=== PATIENT | male | born 1950 | race Caucasian/White ===

== ENCOUNTER 2022-10-07 11:36 | Outpatient (REF) | payer MEDICARE, SELFPAY ==
[2022-10-07 14:24] LABS: Appearance Urine Clear; Color Urine Yellow; Glucose Urine UA 100 mg/dL (Negative); Leukocyte Esterase Urine Negative (Negative); Nitrite Urine Negative (Negative); Specific Gravity - Urine 1.025 (1.005-1.025); Urine Blood Negative (Negative); Urine Ketones Trace mg/dL (Negative); Urine Protein Trace mg/dL (Neg-Trace)
[2022-10-07 14:29] LABS: Bacteria Urine None Seen (None Seen); Hyaline Casts Urine 0-2 /LPF (0-2); RBC Urine 0-2 /HPF (0-2); Squamous Epithelial Cell Urine 0-2 /HPF (0-2); WBC Urine 0-5 /HPF (0-5)
== END 2022-10-07 11:37 | disposition home or self-care (01) ==
LOC: HO.MANLDS 11:36
PROVIDERS: Visit Provider Internal Medicine
DX: R30.0 Dysuria (principal)
CPT/HCPCS: 81001; 87086

== ENCOUNTER 2025-09-20 09:56 | Outpatient (REF) | payer MEDICARE, SELFPAY ==
--- OUTSIDE RECORDS SUMMARY | 2025-09-20 11:25 | XMS_ITS | Encounter Summary ---
Author Organization [facility] Address [address] [place] [address] Phone Care Team Providers Care Catheter Builder Name Role Phone Unknown, Unknown Primary Care Provider Kranthi Walton DO Primary Care Provider Encounter Details Date Type Department Care Team (Latest Contact Info) Description 09/02/2022 Transcribe Orders [facility] [address] [place] [address] Ivy Limon PA [address] [facility] [place] [address] Type 2 diabetes mellitus without complication, without long-term current use of insulin; Screening for prostate cancer Social History Tobacco Use Types Packs/Day Years Used Date Smoking Tobacco: Former Cigarettes Q uit: 1989 Smokeless Tobacco: Former Alcohol Use Standard Drinks/Week Comments No 0 (1 standard drink = 0.6 oz pur e alcohol) Sex and Gender Information Value Date Recorded Sex Assigned at Not on file Legal Sex Male 10:00 PM EDT Gender Identity Not on file Sexual Orientation Not on file documented as of this encounter Plan of Treatment Upcoming Encounters Date Type Department Care Team (Late st Contact Info) Description 10/27/2024 Procedure Pass [facility] [address] [place] [id number] 10/24/2025 9:15 AM EST Appointment [facility] [address] [place] [address] Florina Ledbetter, DANIAL [address], [address] [place] [address] [email or web address] 11/13/2025 8:30 AM EST Office Visit [facility] [address] [facility] [address], [address] [place] [address] Florina Ledbetter, DNP [address] [facility], [address] [place] [address] documented as of this encounter Results * PSA (screening) (09/02/2022 8:20 AM EDT) PSA 0.46 0 - 4.00 ng/mL [facility] Blood 09/02/2022 8:20 AM EDT 09/02/2022 8:24 AM EDT us Ivy [facility] BLOOD BKR ORDERABLES Fi nal Result [address] [address] * (ABNORMAL) Microalbumin/creatinine ratio, random urine (09/02/2022 8:20 AM EDT) URINE MICROALBUMIN 3.3(H) 0 - 2.3 mg/dL [facility] URINE CREATININE 131 mg/dL [facility] MICROALB/CRE RATIO 25.2(H) 0 - 20 mg/g Cre [facility] Urine (Urine) 09/02/2022 8:2 0 AM EDT 09/02/2022 8:30 AM EDT us Ivy [facility] URINE ORDERABLES Final Result [address] [address] * CBC and differential (09/02/2022 8:20 AM EDT) WBC 6.36 4.00 - 11.00 K/uL [facility] RBC 4.81 3.90 - 5.69 M/uL [facility] HGB 13.9 12.4 - 17.3 g/dL [facility] HCT 43.3 37.0 - 51.0 % [facility] PLT 185 140 - 430 K/uL [facility] MCV 90.0 78.0 - 97.0 fL [facility] MCH 28.9 25.0 - 33.0 pg [facility] MCHC 32.1 32.0 - 36.0 g/dL [facility] RDW 12.8 11.0 - 15.0 % [facility] MPV 11.1 8.4 - 12.8 fl [facility] DIFF [employer] [facility] NEUTS 64.3 43.0 - 75.0 % [facility] LYMPHS 21.1 18.2 - 47.4 % [facility] MONOS 8.3 4.00 - 11.00 % [facility] EOS 4.6 0.0 - 8.0 % [facility] BASOS 1.4 0.0 - 2.0 % [facility] Granulocytes, immature (%) 0.3 0.0 - 0.9 % [facility] ABSOLUTE NEUTS 4.09 1.80 - 7.70 K/uL [facility] ABSOLUTE LYMPHS 1.34 1.00 - 3.10 K/uL [facility] ABSOLUTE MONOS 0.53 0.20 - 0.80 K/uL [facility] ABSOLUTE EOS 0.29 0.00 - 0.80 K/uL [facility] ABSOLUTE BASOS 0.09 0.00 - 0.09 K/uL [facility] Granulocytes, immature 0.02 0.00 - 0.05 K/uL [facility] Blood 09/02/2022 8:20 AM EDT 09/02/2022 8:24 AM EDT us Ivy [facility] BLOOD BKR ORDERABLES Fi nal Result [facility] [address] [place] [address] * (ABNORMAL) Hemoglobin A1c (09/02/2022 8:20 AM EDT) HEMOGLOBIN A1C 7.0(H) 4.3 - 5.8 % [facility] Blood 09/02/2022 8:20 AM EDT 09/02/2022 8:24 AM EDT us Ivy [facility] BLOOD BKR ORDERABLES Fi nal Result [facility] [address] [place] [address] * (ABNORMAL) Comprehensive metabolic panel (09/02/2022 8:20 AM EDT) SODIUM 143 133 - 146 mmol/L [facility] POTASSIUM 4.8 3.3 - 5.1 mmol/L [facility] CHLORIDE 107 96 - 108 mmol/L [facility] CO2 26 21 - 35 mmol/L [facility] BUN 11 6 - 19 mg/dL [facility] CREATININE 0.80 0.5 - 1.5 mg/dL [facility] GLUCOSE 120(H) 70 - 99 mg/dL [facility] ALBUMIN 4.4 3.9 - 4.8 g/dL [facility] TOTAL PROTEIN 6.8 6.5 - 8.0 g/dL [facility] CALCIUM 9.3 8.4 - 10.3 mg/dL [facility] ALKALINE PHOSPHATASE 103 39 - 117 U/L [facility] TOTAL BILIRUBIN 0.6 0.0 - 1.2 mg/dL [facility] AST 17 0 - 37 U/L [facility] ALT 17 0 - 40 U/L [facility] GLOBULIN 2.4 1 - 4.8 g/dL [facility] EGFR 95 >59 mL/min/1.7 3m2 [facility] Comment:Estimated glomerular filtration rate calculated using the CKD-EPI refit equation. ANION GAP 15 10 - 20 mmol/L [facility] Blood 09/02/2022 8:20 AM EDT 09/02/2022 8:24 AM EDT us Ivy [facility] BLOOD BKR ORDERABLES Fi nal Result [facility] [address] [place] [address] documented in this encounter Visit Diagnoses Diagnosis Type 2 diabetes mellitus without complication, without long-term current use of insulin Screening for prostate cancer Special screening for malignant neoplasm of prostate documented in this encounter Care Teams Catheter Builder Relationship Specialty Start Date End Date Unknown, Unknown, MD PCP - General 02/19/22 06/15/23 Kranthi Javier DO [email or web address] PCP - General Internal Medicine 06/16/23 documented as of this encounter Additional Source Comments The information contained in this document represents components of the legal health record. It is not the complete legal health record.[facility]
--- OUTSIDE RECORDS SUMMARY | 2025-09-20 11:26 | XMS_ITS | Encounter Summary ---
Author Organization [facility] Address [address] [place] [address] Phone Care Team Providers Care Dock Grader Name Role Phone ShaqtristianKranthi DO Primary Care Provider [phone] Encounter Details Date Type Department Care Team (Late st Contact Info) Description 05/08/2024 Procedure Pass [facility], Ct Scan - [facility] [address] [place] [address] Social History Tobacco Use Types Packs/Day Years Used Date Smoking Tobacco: Former Cigarettes 1.5 25 1 965 - 1989 Smokeless Tobacco: Former Alcohol Use Standard Drinks/Week Comments Yes 1 (1 standard drink = 0.6 oz pur e alcohol) Education Answer Date Recorded Are you interested in more education? Not on kin e 03/13/2023 Are you concerned about learning? Not on file 03/13/2023 No 03/13/2023 No 03/13/2023 Digital Access Answer Date Recorded No 04/13/2023 No 04/13/2023 Reliable internet access at home? Not on file 04/13/2023 Device with a working camera? Not on file Intimate Partner Violence Answer Date R ecorded Are you denied basic needs s uch as food, clothing, or medical care? No 05/08/2024 In the past 12 months have y ou been in a relationship with a person who hurts, threatens, or tries to control you? No 05/08/2024 Are you denied basic needs s uch as food, clothing, or medical care? No 05/08/2024 In the past 12 months have y ou been in a relationship with a person who hurts, threatens, or tries to control you? No 05/08/2024 Sex and Gender Information Value Date Recorded Sex Assigned at Not on file Legal Sex Male 10:00 PM EDT Gender Identity Not on file Sexual Orientation Not on file documented as of this encounter Functional Status * Calculated C-SSRS Risk Score (Lifetime/Recent) Answer Date of Assessment Author No Risk Indicated 05/08/2024 11:32 AM EDT Page Murphy RN * [place] Suicide Severity Rating Scale (Screener/Recent Self-Report) Question Answer Date of Assessment Author 1. Wish to be (Past 1 Month) No 05/08/2024 11:32 AM EDT Page Murphy RN 2. Non-Specific Active Suicidal Thoughts (Past 1 Month) No 05/08/2024 11:32 AM EDT Page Murphy RN 6. Suicidal Behavior (Lifetime) No 05/08/2024 11:32 AM EDT Page Murphy RN documented as of this encounter Plan of Treatment Upcoming Encounters Date Type Department Care Team (Late st Contact Info) Description 10/27/2024 Procedure Pass [facility] [address] [place] [address] 10/24/2025 9:15 AM EST Appointment [facility] [address] [place] [address] Florina Ledbetter DNP [address] [place] [id number] 11/13/2025 8:30 AM EST Office Visit [facility] [address] [place] [address] [address]rd Floor, [address] [address] Florina Ledbetter DNP [address] [place] [phone] documented as of this encounter Visit Diagnoses Not on filedocumented in this encounter Care Teams Dock Grader Relationship Specialty Start Date End Date Kranthi Javier DO [phone] (work) [email or web address] PCP - General Internal Medicine 06/16/23 documented as of this encounter Additional Source Comments The information contained in this document represents components of the legal health record. It is not the complete legal health record.[facility]
--- OUTSIDE RECORDS SUMMARY | 2025-09-20 11:26 | XMS_ITS | Encounter Summary ---
Author Organization [facility] Address [address] [place] [address] Phone Care Team Providers Care Environmental Engineering Intern Name Role Phone ShaqtristianKranthi DO Primary Care Provider [phone] Encounter Details Date Type Department Care Team (Late st Contact Info) Description 06/20/2024 Procedure Pass [facility] [place] [address] [place] [address] Social History Tobacco Use Types Packs/Day Years Used Date Smoking Tobacco: Former Cigarettes 1.5 25 1 965 - 1989 Smokeless Tobacco: Former Alcohol Use Standard Drinks/Week Comments Yes 1 (1 standard drink = 0.6 oz pur e alcohol) Home Health Assessment: Transportation Answer Date Recorded Lack of Transportation (Medical) No 06/22/2024 Lack of Transportation (Non-Medical) No 06/22/2024 Patient Unable or Declines to Respond No 06/22/2024 Education Answer Date Recorded Are you interested [...] Info) Description 10/27/2024 Procedure Pass [facility] [address] [place] [address] 10/24/2025 9:15 AM EST Appointment [facility] [address] [place] [address] Florina Ledbetter DNP [address] [place] [address], [address] [address] 11/13/2025 8:30 AM EST Office Visit [facility] [address], [address] [place] [phone] Florina Ledbetter DNP [address] [place] [address], [address] [address] documented as of this encounter Visit Diagnoses Not on filedocumented in this encounter Care Teams Environmental Engineering Intern Relationship Specialty Start Date End Date Kranthi Javier DO PCP - General Internal Medicine 06/16/23 documented as of this encounter Additional Source Comments The information contained in this document represents components of the legal health record. It is not the complete legal health record.[facility]
--- OUTSIDE RECORDS SUMMARY | 2025-09-20 11:26 | XMS_ITS | Continuity of Care Document ---
Author Organization [place] - [facility], [facility] Address [address] [place] [address] [place] [address] Assessment Encounter Date Assessment Date Assessment LastModified by Organization Details LastModified Time 09/20/2025 09/20/2025 Patient presente d to office today for their Medicare Annual Wellness Visit. Education was provided on healthy nutrition, including a diet rich in fruits and vegetables, minimizing simple carbohydrates, salt, and saturated fats. Encouraged regular cardiovascular exercise such as walking at least 30 minutes daily, 5 times per week. Emphasized preventive health measures and educated pt on fall prevention and community-based lifestyle interventions to help reduce health risks and promote healthy living. Not available 08/07/2025 12:09:44 Plan of Treatment Reminders Order Date Submit Date Provider Last Modified By Organization Details Last Modified Time Details Appointments MEDICARE ANNUAL WELLNESS 2024 10:30A M DR HENSON Not available Not available Not available MEDICARE ANNUAL WELLNESS 2025 09:00A M DR HENSON Not available Not available Not available Lab lipid panel, blood 2024 025 [facility], [address] [place] [address], [id number], 09/20/2025 11:02:35 hemoglobi n, gastroint estinal, stool 2024 025 [facility], [address] [place] [address], [place], [id number], 09/20/2025 11:02:35 CBC w/ auto diff 2024 025 [facility], [address] [place] [address], [id number], 09/20/2025 11:02:35 CMP, serum or plasma 2024 025 [facility], [address] [place] [address], [id number], 09/20/2025 11:02:34 Referral None recorded. Procedures None recorded. Surgeries None recorded. Imaging None recorded. Medication Orders None recorded. Patient TargetsNo targets recorded. Patient Instructions Encounter Date Encounter Id Patient Instructions Last Modified By Organization Details Last Modified Time 09/20/2025 [id number] advance care planning: care instructions Not available 09/20/2025 10:57:14 Discussed and explained advance directives such as standard forms to the . Face to face discussion lasted for a duration of ___ minutes. Not available 08/07/2025 12:09:44 Reason for Referral None Reported. Problems Name Problem SNOMED Code Status Onset Date Resolution Date Notes Provider Name and Address Organization Details Recorded Time Jori isidro hyperten aren 19357316 Active 2021 Not Available [facility] 2 19:44:44 Coronary arterios clerosis 26206343 Active 2021 3 prior stents 2018. 2006 Kranthi Henson, DO [address] [place], [address], [facility] 3 15:57:13 Degenera tion of lumbar interver tebral disc 78547516 Active 2021 Not Available [facility] 2 19:44:44 Osteoart hritis of knee 302297999 Active 2021 Not Available [facility] 2 19:44:44 Psoriasi s 7215474 Active 2021 Not Available [facility] 2 19:44:44 Benign prostati c hyperpla angel 690086114 Active 2021 Not Available [facility] 2 19:44:44 Seborrhe ic dermatit is 87523077 Active 2021 Not Available [facility] 2 19:44:44 Compress ion fracture of L2 75384552140 671620 Active 2021 Not Available [facility] 2 19:44:44 Abdomina l aortic aneurysm 149330958 Active 2021 s/p [facility] from may [facility] 15:23:15 Hyperlip idemia 67096014 Active 2021 Not Available [facility] 2 19:44:44 Type 2 diabetes mellitus 35926598 Active 2021 Not Available [facility] 2 19:44:44 Low back pain 799676965 Active 2021 Not Available [facility] 2 19:44:44 Acute urinary tract infectio n 435995870 Active 2021 Not Available [facility] 2 19:44:44 Acute low back pain 480353286 Active 2021 Not Available [facility] 2 19:44:44 Obstruct jez sleep apnea syndrome 25425129 Active 2022 Kranthi Henson, DO [address] [place] [address], [phone], [facility] 3 15:23:18 Type 2 diabetes mellitus without complica tion 057167430 Active 2023 Kranthi Henson, DO [address] [place] [address], [address], [facility] 4 14:47:43 Vitamin D deficien 56407256 Active 2023 Kranthi Henson, DO [address] [place] [address], [phone], [facility] 4 14:49:15 Gastroes ophageal reflux disease 697471636 Active 2023 GUALBERTO POPE [address] [place] [address], [address], [facility] 4 16:27:17 Hypercho lesterol emia 12535686 Active 2024 GUALBERTO POPE [address] [place], [address], [facility] 5 12:14:27 Problem Notes None recorded. Medical Equipment None Reported. Allergies Allergen ID Allergen Name Allergen Category Reaction Reaction Severity Criticality Documentation Date Start Date Code Code System Note Provider Name and Address Organization Details Recorded Time 6082 amoxicill in medicatio n anaphylax is severe Not available 08/29/2022 723 RxNorm Not Available [facility] 2 19:44:43 Medications Name Sig Start Date Stop Date Status Note LastModified by Organization Details LastModified Time metformin 500 mg tablet TAKE 1 TABLET DAILY active Not Available Not Available No t Available atorvastati n 80 mg tablet TAKE 1 TABLET DAILY active Not Available Not Available No t Available ofloxacin 0.3 % eye drops 05/10 completed Not Available Not Available Not Available clopidogrel 75 mg tablet TAKE 1 TABLET DAILY 2024 active Not Available Not Available Not Avai lable aspirin 81 mg tablet,zachary yed release Take 1 tablet every day by oral route. active Not Available Not Available No t Available tramadol 50 mg tablet Take 1 tablet every 6 hours by oral route. 04/17 completed Not Available Not Available Not Available glimepiride 1 mg tablet TAKE 2 TABLETS DAILY active Not Available Not Available No t Available pantoprazol e 20 mg tablet,zachary yed release TAKE 1 TABLET BY MOUTH TWICE DAILY 05/27 completed Not Available Not Available Not Available ketorolac 0.5 % eye drops PLACE 1 DROP IN SURGICAL EYE 3 TIMES A DAY FOR 3 WEEKS FOLLOWING CATARACT SURGERY IN EACH EYE 09/20 completed Not Available Not Available Not Available pantoprazol e 40 mg tablet,zachary yed release TAKE 1 TABLET BY MOUTH EVERY DAY active Not Available Not Available No t Available Cipro 500 mg tablet Take 1 tablet every 12 hours by oral route for 7 days. 08/12 completed Not Available Not Available Not Available triamcinolo ne acetonide 0.1 % topical ointment APPLY TO AFFECTED AREAS TWICE A DAY FOR UP TO 2 WEEKS ON, 1 WEEKS OFF. NO FACE, ARMPITS, OR GROIN. 09/20 completed Not Available Not Available Not Available lisinopril 5 mg tablet TAKE 1 TABLET DAILY active Not Available Not Available No t Available mupirocin 2 % topical ointment APPLY TO AFFECTED AREA THREE TIMES A DAY FOR 2 WEEKS 04/20 completed Not Available Not Available Not Available metoprolol succinate ER 25 mg tablet,exte nded release 24 hr TAKE 1 TABLET DAILY active Not Available Not Available No t Available ondansetron 4 mg disintegrat ing tablet TAKE 1 TABLET BY MOUTH EVERY 6 HOURS NEEDED FOR NAUSEA AND VOMITING 05/10 completed Not Available Not Available Not Available CoQ10 50 mg 1 qd active Not Available Not Available No t Available Farxiga 10 mg tablet TAKE 1 TABLET BY MOUTH EVERY DAY active Not Available Not Available No t Available Vitals Date Recorded Body height Body mass index (BMI) Body weight Heart rate Oxygen saturation Oxygen saturation in Arterial blood by Pulse oximetry Systolic And Diastolic Provider Name and Address Organization Details Last Updated DateTime 5 182.88 cm 29.6 kg/m2 85577.1 4 g 70 /min 97 % 97 % 112/64 mm[Hg] Kranthi Henson, DO [address] [place], [address] [place] [address] Internal Medicine 5 10:18:40 Social History Question Answer Notes LastModified by [employer] Details LastModified Time Tobacco Smoking Status Former Smoker [facility] 08/29/2022 09:53:33 What Was The Date Of Your Most Recent Tobacco Screening? 09/20/2025 Information not available 09/20/2025 Sex: Unknown Functional Status Question Answer Note LastModified by [employer] Details LastModified Time Do you or have you ever used any other forms of tobacco or nicotine? No Information not available 08/29/2022 What is your level of alcohol consumption? Occasional social Information not available 08/29/2022 Mental Status None recorded. Family History Nothing Reported. Medical History No medical history recorded. Immunizations Vaccine Type Date Status Note Provider Nam e and Address Organization Details Recorded Time COVID-19, mRNA, LNP-S, PF, 30 mcg/0.3 mL dose 01/12/2021 completed Not Available [facility] 3 11:52:21 COVID-19, mRNA, LNP-S, PF, 30 mcg/0.3 mL dose 02/02/2021 completed Not Available [facility] 3 11:52:21 Past Encounters Encounter ID Performer Location Encounter Start Date Encounter Closed Date Diagnosis/Indication Diagnosis SNOMED-CT Code Diagnosis ICD10 Code Diagnosis IMO Codes Diagnosis Note [id number] Kranthi Henson DO [facility] [address] [facility],[place] [address] 09/20/2025 10:05:48 09/20/2025 11:00:27 Screening for cardiovascular system disease 335868505 Z13.6 if he is not getting a new cath for his heart when he sees cardio he will be scheduledc t heart and echo Screening for malignant neoplasm of colon 098076506 Z12.11 Depression screening 171 218777 Z13.31 negative Essential hypertension 17411762 I10 doing okis going to try to lose weight with portion control Hyperlipidemia 62025410 E78.2 on meds Type 2 jovanny betes mellitus without complication 604546678 E11.9 a1c is 6.3 doing well and no changes Preventive procedure 169 915158 Z00.00 06500955 staying active not having any symptoms Health Concerns Section Related Observation LastModified by Organization Detai ls LastModified Time None Recorded Concern Status LastModified by Organization Details LastModified Time None Recorded Payers Encounter Date Sequence Insurance Name Policy Number Policy Allred Covered Member ID Allred Member ID Guarantor Name 09/20/2025 1 [facility] MED[place] BLUE (MEDICARE REPLACEMENT PPO) [id number] Gurwinder Tabor [id number] Gurwinder Tabor Notes Date Note Type Note Provider Name and Address Organization Details Recorded Time 09/20/20 25 text/htm l Care Management - HypertensionReported by PatientHPIFor self care, patient reportsnot under emotional stress. For severity, patient reportssymptoms are improvinganddoes not interfere with daily activities. For associated symptoms, patient reportsno dizziness,no lightheadedness,no chest pain,no shortness of breath,no palpitations,no edema,no calf muscle cramps,no blurred vision,no confusion,no headaches, andno fatigue. Care Management - DiabetesReported by PatientHPIFor self care, patient reportsseeing eye doctor yearly for dilated eye exam,checking feet regularly,normal range of home blood sugars (in the low 100s), andno side effects from medications. For associated symptoms, patient reportssymptoms are usually well controlled,no fatigue,no dizziness,no excessive sweating,no headaches,no confusion,no increased thirst,no increased appetite,no increased urination,no blurred vision,no numbness of feet, andno calluses on feet. Care Management - HyperlipidemiaReported by PatientHPIFor control, patient reportsusually well controlled,improving, andat goal. For complications, patient reportsno coronary artery disease,no heart attack,no cardiovascular disease,no pancreatitis, andno stroke. Medicare Annual Wellness VisitReported by PatientSocial/Behavioral HistoryFor diet and nutrition, patient reportshealthy diet. For fracture risk, patient reportsno history of fractures,no recent explained fracture,no sudden unexplained fractures, andno previous musculoskeletal injuries. For physical activity, patient reportsexercises on a regular basis,recent increase in physical activity, andgood physical condition.Mental Status:For depression risk, patient reportsnever feels sad, empty, or tearful,no loss of interest in activities,no significant changes in weight,no sleep disturbances or insomnia,no agitation,no loss of energy,no feelings of worthlessness or guilt,no thoughts of suicide,no history of depression, andno history of mood disorders. For orientation, patient reportsno disorientation to time,no disorientation to date, andno disorientation to place. For concentration and memory, patient reportsno decreased concentrating ability,no memory lapses or loss, anddoes not forget words. For speech/motor difficulties, patient reportsno speech difficulties,no difficulty expressing formulated concepts,no difficulty with fine manipulative tasks,no difficulty writing/copying,no slowed reaction time, anddoes not knock things over when trying to pick them up.Functional AbilityFor hearing, patient reportsno loss of hearing. For vision, patient reportsno vision problems. For activities of daily living, patient reportsable to bathe with limited or no assistance,able to contol urination and bowels,able to dress with limited or no assistance,able to feed self with limited or no assistance,able to get out of chair or bed with limited or no assistance,able to groom with limited or no assistance, andable to toilet with limited or no assistance. For instrumental activities of daily living, patient reportsable to do house work with limited or no assistance,able to grocery shop with limited or no assistance,able to manage medications with limited or no assistance,able to manage money with limited or no assistance,able to prepare meals with limited or no assistance, andable to use the phone with limited or no assistance. For falls risk assessment, patient reportsno frequent falls while walking,no fall in the past year,no fall since last visit, andno dizziness/vertigo. For home safety, patient reportsno unsafe shirley hazzards,no unsafe stairs,no unsafe gas appliances,working smoke/co detectors,wears protective head gear for biking/high velocity,use of seatbelts,practicing 'safer sex',no vision or hearing loss while driving,no fire arms,has hand bars in the bathroom/shower, andgood lighting in the home.ROS as noted in the HPI here for his mwv and is doing ok overallhad a recent US of the abdomen recently but we have no report on the AAA repair Kranthi Henson, DO [address] [facility], [place], [address], [place] [facility] 09/20/2025 11:00:26
--- OUTSIDE RECORDS SUMMARY | 2025-09-20 11:26 | XMS_ITS | Encounter Summary ---
Author Organization [facility] Address [address] [place] [address] Phone Care Team Providers Care Drying Oven Attendant Name Role Phone Kranthi Javier Primary Care Provider [phone] Encounter Details Date Type Department Care Team (Latest Contact Info) Description 05/30/2024 Transcribe Orders [facility] Specimen Processing [address] [place] [address] [place] [address] [place] [address] Bacteremia (Primary Dx) Social History Tobacco Use Types Packs/Day Years Used Date Smoking Tobacco: Former Cigarettes 1.5 25 1 965 - 1989 Smokeless Tobacco: Former Alcohol Use Standard Drinks/Week Comments Yes 1 (1 standard drink = 0.6 oz pur e alcohol) Home Health Assessment: Transportation Answer Date Recorded Lack of Transportation (Medical) No 05/27/2024 Lack of Transportation (Non-Medical) No 05/27/2024 Patient Unable or Declines to Respond No 05/27/2024 Education Answer Date Recorded Are you interested [...] Info) Description 10/27/2024 Procedure Pass Echo [facility] [address] [place] [address] 10/24/2025 9:15 AM EST Appointment Echo Lab [address] [place] [address] Florina Ledbetter DNP [address] [place] [address], [address] [address] 11/13/2025 8:30 AM EST Office Visit [facility] [address] [place] [address] 3rd Floor, [address] [place] [address] Florina Ledbetter DNP [address] [place] [address], [address] [address] documented as of this encounter Procedures Procedure Name Priority Date/Time Associated Diagnosis Comments COMPREHENSIVE METABOLIC PANEL (CMP) Routine 06/06/2024 10:50 AM EDT Bacteremia SEDIMENTATION RATE (ESR) Routine 06/06/2024 10:50 AM EDT Bacteremia CBC AND DIFFERENTIAL Routine 06/06/2024 10:50 AM EDT Bacteremia C-REACTIVE PROTEIN (CRP) Routine 06/06/2024 10:50 AM EDT Bacteremia COMPREHENSIVE METABOLIC PANEL (CMP) Routine 05/30/2024 12:20 PM EDT Bacteremia CBC AND DIFFERENTIAL Routine 05/30/2024 12:20 PM EDT Bacteremia documented in this encounter Results * (ABNORMAL) C-Reactive Protein (06/06/2024 10:50 AM EDT) C REACTIVE PROTEIN 10.4(H) 0.0 - 4.0 mg/L [facility] Blood 06/06/2024 10:5 0 AM EDT 06/06/2024 11:49 AM EDT us Ynes Doss MD LAB BLOOD BKR ORDERABLES Final R esult Performing Organization Address [facility]/ZIP Co de Phone Number [address] [address] * (ABNORMAL) Sedimentation rate (ESR) (06/06/2024 10:50 AM EDT) ESR 21(H) 0 - 20 mm/h [facility] Blood 06/06/2024 10:5 0 AM EDT 06/06/2024 11:49 AM EDT us Ynes Doss MD LAB BLOOD BKR ORDERABLES Final R esult Performing Organization Address City/[facility]/ZIP Co de Phone Number [address] [address] * (ABNORMAL) CBC and differential (06/06/2024 10:50 AM EDT) WBC 7.20 4.00 - 11.00 K/uL [facility] RBC 3.52(L) 3.90 - 5.69 M/uL [facility] HGB 9.5(L) 12.4 - 17.3 g/dL [facility] HCT 31.3(L) 37.0 - 51.0 % [facility] PLT 309 140 - 430 K/uL [facility] MCV 88.9 78.0 - 97.0 fL [facility] MCH 27.0 25.0 - 33.0 pg [facility] MCHC 30.4(L) 32.0 - 36.0 g/dL [facility] RDW 14.9 11.0 - 15.0 % [facility] MPV 9.9 8.4 - 12.8 fl [facility] DIFF METHOD Auto [facility] NEUTS 67.1 43.0 - 75.0 % [facility] LYMPHS 14.7(L) 18.2 - 47.4 % [facility] MONOS 7.1 4.00 - 11.00 % [facility] EOS 9.3(H) 0.0 - 8.0 % [facility] BASOS 1.1 0.0 - 2.0 % [facility] Granulocytes, immature (%) 0.7 0.0 - 0.9 % [facility] ABSOLUTE NEUTS 4.83 1.80 - 7.70 K/uL [facility] ABSOLUTE LYMPHS 1.06 1.00 - 3.10 K/uL [facility] ABSOLUTE MONOS 0.51 0.20 - 0.80 K/uL [facility] ABSOLUTE EOS 0.67 0.00 - 0.80 K/uL [facility] ABSOLUTE BASOS 0.08 0.00 - 0.09 K/uL [facility] Granulocytes, immature 0.05 0.00 - 0.05 K/uL [facility] Blood 06/06/2024 10:5 0 AM EDT 06/06/2024 11:49 AM EDT us Ynes Doss MD LAB BLOOD BKR ORDERABLES Final R esult [facility] [address] [place] [address] * (ABNORMAL) Comprehensive metabolic panel (06/06/2024 10:50 AM EDT) SODIUM 145 133 - 146 mmol/L [facility] POTASSIUM 4.2 3.3 - 5.1 mmol/L [facility] CHLORIDE 108 96 - 108 mmol/L [facility] CO2 25 21 - 35 mmol/L [facility] BUN 8 6 - 19 mg/dL [facility] CREATININE 0.70 0.5 - 1.5 mg/dL [facility] GLUCOSE 85 70 - 99 mg/dL [facility] ALBUMIN 3.1(L) 3.9 - 4.8 g/dL [facility] TOTAL PROTEIN 5.5(L) 6.5 - 8.0 g/dL [facility] CALCIUM 8.5 8.4 - 10.3 mg/dL [facility] ALKALINE PHOSPHATASE 102 39 - 117 U/L [facility] TOTAL BILIRUBIN 0.3 0.0 - 1.2 mg/dL [facility] AST 13 0 - 37 U/L [facility] ALT 9 0 - 40 U/L [facility] GLOBULIN 2.4 1 - 4.8 g/dL [facility] EGFR 99 >59 mL/min/1.7 3m2 [facility] Comment:Estimated glomerular filtration rate calculated using the CKD-EPI refit equation. ANION GAP 16 10 - 20 mmol/L [facility] Blood 06/06/2024 10:5 0 AM EDT 06/06/2024 11:49 AM EDT us Ynes Doss MD LAB BLOOD BKR ORDERABLES Final R esult [facility] [address] [place] [address] * (ABNORMAL) CBC and differential (05/30/2024 12:20 PM EDT) WBC 5.88 4.00 - 11.00 K/uL [facility] RBC 3.12(L) 3.90 - 5.69 M/uL [facility] HGB 8.5(L) 12.4 - 17.3 g/dL [facility] HCT 26.9(L) 37.0 - 51.0 % [facility] PLT 330 140 - 430 K/uL [facility] MCV 86.2 78.0 - 97.0 fL [facility] MCH 27.2 25.0 - 33.0 pg [facility] MCHC 31.6(L) 32.0 - 36.0 g/dL [facility] RDW 14.5 11.0 - 15.0 % [facility] MPV 9.9 8.4 - 12.8 fl [facility] DIFF METHOD Auto [facility] NEUTS 66.4 43.0 - 75.0 % [facility] LYMPHS 13.9(L) 18.2 - 47.4 % [facility] MONOS 9.0 4.00 - 11.00 % [facility] EOS 8.8(H) 0.0 - 8.0 % [facility] BASOS 1.2 0.0 - 2.0 % [facility] Granulocytes, immature (%) 0.7 0.0 - 0.9 % [facility] ABSOLUTE NEUTS 3.90 1.80 - 7.70 K/uL [facility] ABSOLUTE LYMPHS 0.82(L) 1.00 - 3.10 K/uL [facility] ABSOLUTE MONOS 0.53 0.20 - 0.80 K/uL [facility] ABSOLUTE EOS 0.52 0.00 - 0.80 K/uL [facility] ABSOLUTE BASOS 0.07 0.00 - 0.09 K/uL [facility] Granulocytes, immature 0.04 0.00 - 0.05 K/uL [facility] Blood 05/30/2024 12:2 0 PM EDT 05/30/2024 2:23 PM EDT us Ynes Doss MD LAB BLOOD BKR ORDERABLES Final R esult [address] [address] * (ABNORMAL) Comprehensive metabolic panel (05/30/2024 12:20 PM EDT) SODIUM 140 133 - 146 mmol/L [facility] POTASSIUM 3.6 3.3 - 5.1 mmol/L [facility] CHLORIDE 106 96 - 108 mmol/L [facility] CO2 23 21 - 35 mmol/L [facility] BUN 6 6 - 19 mg/dL [facility] CREATININE 0.80 0.5 - 1.5 mg/dL [facility] GLUCOSE 91 70 - 99 mg/dL [facility] ALBUMIN 3.0(L) 3.9 - 4.8 g/dL [facility] TOTAL PROTEIN 5.2(L) 6.5 - 8.0 g/dL [facility] CALCIUM 8.0(L) 8.4 - 10.3 mg/dL [facility] ALKALINE PHOSPHATASE 90 39 - 117 U/L [facility] TOTAL BILIRUBIN 0.4 0.0 - 1.2 mg/dL [facility] AST 15 0 - 37 U/L [facility] ALT 10 0 - 40 U/L [facility] GLOBULIN 2.2 1 - 4.8 g/dL [facility] EGFR 95 >59 mL/min/1.7 3m2 [facility] Comment:Estimated glomerular filtration rate calculated using the CKD-EPI refit equation. ANION GAP 15 10 - 20 mmol/L [facility] Blood 05/30/2024 12:2 0 PM EDT 05/30/2024 2:23 PM EDT us Ynes Doss MD LAB BLOOD BKR ORDERABLES Final R esult [facility] [address] [place] [address] documented in this encounter Visit Diagnoses Diagnosis Bacteremia- Primary documented in this encounter Care Teams Drying Oven Attendant Relationship Specialty Start Date End Date Kranthi Javier DO [email or web address] PCP - General Internal Medicine 06/16/23 documented as of this encounter Additional Source Comments The information contained in this document represents components of the legal health record. It is not the complete legal health record.[facility]
--- OUTSIDE RECORDS SUMMARY | 2025-09-20 11:26 | XMS_ITS | Encounter Summary ---
Author Organization [facility] Address [address] [place] [address] Phone Care Team Providers Care Supervisor Metal Fabricating Name Role Phone Mac Amos MD Primary Care Provider [phone] Unknown, Unknown Primary Care Provider Kranthi Walton DO Primary Care Provider [phone] Encounter Details Date Type Department Care Team (Latest Contact Info) Description 08/16/2021 Transcribe Orders [facility] [address] [place] [address] DandreMac MD [address] [facility] [address] [place] [address] [email or web address] Diabetes mellitus of other type without complication, unspecified whether technician terminal and repeater insulin use (Primary Dx) Social History Tobacco Use Types [...] Info) Description 10/27/2024 Procedure Pass [facility] [address] [place] [address] 10/24/2025 9:15 AM EST Appointment Echo [facility] [address] [place] [address] Florina Ledbetter DNP [address] [facility], [address] [place] [address] [email or web address] 11/13/2025 8:30 AM EST Office Visit [facility] [address] [facility] 3rd Floor, [address] [place] [address] Florina Ledbetter DNP 22 [facility], [address] [place] [address] [email or web address] documented as of this encounter Results * PSA (screening) (08/16/2021 8:45 AM EDT) PSA 0.43 0 - 4.00 ng/mL [facility] Blood 08/16/2021 8:45 AM EDT 08/16/2021 9:03 AM EDT Mac Amos MD LAB BLOOD BKR ORDERABLES Final Result [address] [address] * (ABNORMAL) Hemoglobin A1c (08/16/2021 8:45 AM EDT) HEMOGLOBIN A1C 6.3(H) 4.3 - 5.8 % [facility] Blood 08/16/2021 8:45 AM EDT 08/16/2021 9:03 AM EDT Mac Amos MD LAB BLOOD BKR ORDERABLES Final Result [address] [address] * (ABNORMAL) CBC and differential (08/16/2021 8:45 AM EDT) WBC 7.02 4.00 - 11.00 K/uL [facility] RBC 4.86 3.90 - 5.69 M/uL [facility] HGB 14.1 12.4 - 17.3 g/dL [facility] HCT 43.8 37.0 - 51.0 % [facility] PLT 200 140 - 430 K/uL [facility] MCV 90.1 78.0 - 97.0 fL [facility] MCH 29.0 25.0 - 33.0 pg [facility] MCHC 32.2 32.0 - 36.0 g/dL [facility] RDW 13.2 11.0 - 15.0 % [facility] MPV 10.8 8.4 - 12.8 fl [facility] NRBC 0.00 0 /100 WBCs [facility] ABSOLUTE NRBC 0.00 0 K/uL [facility] DIFF METHOD Auto [facility] NEUTS 69.7 43.0 - 75.0 % [facility] LYMPHS 15.8(L) 18.2 - 47.4 % [facility] MONOS 9.3 4.00 - 11.00 % [facility] EOS 3.7 0.0 - 8.0 % [facility] BASOS 1.1 0.0 - 2.0 % [facility] Granulocytes, immature (%) 0.4 0.0 - 0.9 % [facility] ABSOLUTE NEUTS 4.89 1.80 - 7.70 K/uL [facility] ABSOLUTE LYMPHS 1.11 1.00 - 3.10 K/uL [facility] ABSOLUTE MONOS 0.65 0.20 - 0.80 K/uL [facility] ABSOLUTE EOS 0.26 0.00 - 0.80 K/uL [facility] ABSOLUTE BASOS 0.08 0.00 - 0.09 K/uL [facility] Granulocytes, immature 0.03 0.00 - 0.05 K/uL [facility] Blood 08/16/2021 8:45 AM EDT 08/16/2021 9:03 AM EDT us Mac Amos MD LAB BLOOD BKR ORDERABLES Final Result [address] [address] * TSH with reflex (08/16/2021 8:45 AM EDT) TSH 1.62 0.27 - 4.20 uIU/mL [facility] Blood 08/16/2021 8:45 AM EDT 08/16/2021 9:03 AM EDT Mac Amos MD LAB BLOOD BKR ORDERABLES Final Result [address] [address] * (ABNORMAL) Lipid panel (08/16/2021 8:45 AM EDT) HDL 32 mg/dL [facility] Comment: Interpretation <40 mg/dL: Low HDL cholesterol (major risk factor for CHD) Greater than or equal to 60 mg/dL: High HDL cholesterol ( negative risk factor for CHD) HDL - cholesterol is affected by a number of factors, e.g. smoking, excerise, hormones, sex and age. CHOLESTEROL 106 0 - 240 mg/dL [facility] TRIGLYCERIDES 57 30 - 160 mg/dL [facility] LDL 63 50 - 129 mg/dL [facility] Comment: LDL levels in terms of risk for coronary heart disease: <100 mg/dL: Optimal 100-129 mg/dL: Near or above optimal 130-159 mg/dL: Borderline high 160-189 mg/dL: High >190 mg/dL: Very High CARDIAC RISK RATIO 3.3(L) 3.4 - 5.0 [facility] Blood 08/16/2021 8:45 AM EDT 08/16/2021 9:03 AM EDT Mac Amos MD LAB BLOOD BKR ORDERABLES Final Result [address] [address] * (ABNORMAL) Comprehensive metabolic panel (08/16/2021 8:45 AM EDT) SODIUM 143 133 - 146 mmol/L [facility] POTASSIUM 4.7 3.3 - 5.1 mmol/L [facility] CHLORIDE 107 96 - 108 mmol/L [facility] CO2 27 21 - 35 mmol/L [facility] BUN 12 6 - 19 mg/dL [facility] CREATININE 0.70 0.5 - 1.5 mg/dL [facility] GLUCOSE 105(H) 70 - 99 mg/dL [facility] ALBUMIN 4.3 3.9 - 4.8 g/dL [facility] TOTAL PROTEIN 7.3 6.5 - 8.0 g/dL [facility] CALCIUM 9.6 8.4 - 10.3 mg/dL [facility] ALKALINE PHOSPHATASE 99 39 - 117 U/L [facility] TOTAL BILIRUBIN 0.6 0.0 - 1.2 mg/dL [facility] AST 21 0 - 37 U/L [facility] ALT 16 0 - 40 U/L [facility] GLOBULIN 3.0 1 - 4.8 g/dL [facility] EGFR 96 >59 mL/min/1.7 3m2 [facility] Comment:Estimated glomerular filtration rate calculated using the CKD-EPI equation. ANION GAP 14 10 - 20 mmol/L [facility] Blood 08/16/2021 8:45 AM EDT 08/16/2021 9:03 AM EDT us Mac Amos MD LAB BLOOD BKR ORDERABLES Final Result Performing Organization Address City/State/[facility] Co de Phone Number [address] [address] documented in this encounter Visit Diagnoses Diagnosis Diabetes mellitus of other type without complication, unspecified whether technician terminal and repeater insulin use- Primary documented in this encounter Care Teams Supervisor Metal Fabricating Relationship Specialty Start Date End Date Dandre, Mac Bess MD [address] [place] [address] [address] [place] [address] [email or web address] PCP - General Internal Medicine 02/02/1902/18 Unknown, Grey, PCP - General 02/19/22 06/15/23 Kranthi Javier DO [email or web address] PCP - General Internal Medicine 06/16/23 documented as of this encounter Additional Source Comments The information contained in this document represents components of the legal health record. It is not the complete legal health record.[facility]
--- OUTSIDE RECORDS SUMMARY | 2025-09-20 11:26 | XMS_ITS | Encounter Summary ---
Author Organization [facility] Address [address] [place] [address] Phone Care Team Providers Care Engine Room Helper Name Role Phone ShaqtristianKranthi DO Primary Care Provider [phone] Encounter Details Date Type Department Care Team (Late st Contact Info) Description 05/08/2024 Procedure Pass [facility], [address] [address] Social History Tobacco Use Types Packs/Day Years [...] 11:32 AM EDT Page Murphy RN * [place] Suicide Severity Rating Scale (Screener/Recent Self-Report) Question [...] Info) Description 10/27/2024 Procedure Pass [facility] [address] [place] [address] 10/24/2025 9:15 AM EST Appointment [facility] [address] [place] [address] Florina Ledbetter DNP [address] [place] [address] 11/13/2025 8:30 AM EST Office Visit [facility] [address] [place] [address] 3rd Floor, [address] [address] Florina Ledbetter DNP [address] [place] [address] documented as of this encounter Visit Diagnoses Not on filedocumented in this encounter Care Teams Engine Room Helper Relationship Specialty Start Date End Date Kranthi Javier DO [phone] (work) [email or web address] PCP - General Internal Medicine 06/16/23 documented as of this encounter Additional Source Comments The information contained in this document represents components of the legal health record. It is not the complete legal health record.[facility]
--- OUTSIDE RECORDS SUMMARY | 2025-09-20 11:26 | XMS_ITS | Encounter Summary ---
Author Organization [facility] Address [address] [facility] [address] [place] [address] Phone Care Team Providers Care Creative Guru Name Role Phone Mac Amos MD Primary Care Provider [phone] Unknown, Unknown Primary Care Provider Kranthi Walton DO Primary Care Provider [phone] Encounter Details Date Type Department Care Team (Latest Contact Info) Description 12/24/2021 Transcribe Orders [facility] [address] [facility] [place] [address] DandreMac MD 264 [facility] [address] [place] [address] [email or web address] Type 2 diabetes mellitus without complication, unspecified whether retirement insulin use Social History Tobacco Use Types Packs/Day Years [...] Info) Description 10/27/2024 Procedure Pass [facility] [address] [place] [address] 10/24/2025 9:15 AM EST Appointment [facility] [address] [place] [address] Florina Ledbetter DNP [address] [facility], [address] [place] [address] 11/13/2025 8:30 AM EST Office Visit [facility] [address], [address] [place] [address] Florina Ledbetter DNP [address] [facility], [address] [place] [address] [email or web address] documented as of this encounter Results * (ABNORMAL) Basic metabolic panel (12/24/2021 8:56 AM EST) SODIUM 140 133 - 146 mmol/L [facility] CHLORIDE 105 96 - 108 mmol/L [facility] POTASSIUM 4.7 3.3 - 5.1 mmol/L [facility] CO2 28 21 - 35 mmol/L [facility] BUN 9 6 - 19 mg/dL [facility] CREATININE 0.80 0.5 - 1.5 mg/dL [facility] GLUCOSE 157(H) 70 - 99 mg/dL [facility] CALCIUM 9.2 8.4 - 10.3 mg/dL [facility] EGFR 96 >59 mL/min/1.7 3m2 [facility] Comment:Estimated glomerular filtration rate calculated using the CKD-EPI refit equation. ANION GAP 12 10 - 20 mmol/L [facility] Blood 12/24/2021 8:56 AM EST 12/24/2021 11:25 AM EST Mac Amos MD LAB BLOOD BKR ORDERABLES Final Result [facility] [address] [place] [address] * (ABNORMAL) Hemoglobin A1c (12/24/2021 8:56 AM EST) HEMOGLOBIN A1C 8.5(H) 4.3 - 5.8 % [facility] Blood 12/24/2021 8:56 AM EST 12/24/2021 9:12 AM EST Mac Amos MD LAB BLOOD BKR ORDERABLES Final Result [facility] [address] [place] [address] documented in this encounter Visit Diagnoses Diagnosis Type 2 diabetes mellitus without complication, unspecified whether intermodal truck driver insulin use documented in this encounter Care Teams Creative Guru Relationship Specialty Start Date End Date Mac Amos MD [address] [facility] [address] [place] [address] [email or web address] PCP - General Internal Medicine 02/02/1902/18 Unknown, Grey, PCP - General 02/19/22 06/15/23 Kranthi Javier DO [email or web address] PCP - General Internal Medicine 06/16/23 documented as of this encounter Additional Source Comments The information contained in this document represents components of the legal health record. It is not the complete legal health record.[facility]
--- OUTSIDE RECORDS SUMMARY | 2025-09-20 11:26 | XMS_ITS | Encounter Summary ---
Author Organization [facility] Address [address] [place] [address] Phone Care Team Providers Care Loan Operations Specialist Name Role Phone Kranthi Javier Primary Care Provider [phone] Encounter Details Date Type Department Care Team (Late Contact Info) Description 06/16/2023 Procedure Pass [facility] [address] [place] [address] Social History Tobacco Use Types Packs/Day Years [...] with a working camera? Not on file Sex and Gender Information Value Date Recorded Sex Assigned at Not on file Legal Sex Male 10:00 PM EDT Gender Identity Not on file Sexual Orientation Not on file documented as of this encounter Plan of Treatment Upcoming Encounters Date Type Department Care Team (Late Contact Info) Description 10/27/2024 Procedure Pass [facility] [address] [place] [address] 10/24/2025 9:15 AM EST Appointment [facility] [place] [address] [place] [address] Florina Ledbetter DNP [address] [facility], [address] [place] [address] 11/13/2025 8:30 AM EST Office Visit [facility] [address] [facility] 3rd Floor, [address] [place] [address] Florina Ledbetter DNP [address] [facility], [address] [place] [address] documented as of this encounter Visit Diagnoses Not on filedocumented in this encounter Care Teams Loan Operations Specialist Relationship Specialty Start Date End Date Kranthi Javier DO PCP - General Internal Medicine 06/16/23 documented as of this encounter Additional Source Comments The information contained in this document represents components of the legal health record. It is not the complete legal health record.[facility]
--- OUTSIDE RECORDS SUMMARY | 2025-09-20 11:26 | XMS_ITS | Encounter Summary ---
Author Organization [facility] Address [address] [facility] [address] [place] [address] Phone Care Team Providers Care Camouflage Assembler Name Role Phone Alan Vu MD Primary Care Provider Mac Michael MD Primary Care Provider [phone] Unknown, Unknown Primary Care Provider Kranthi Walton DO Primary Care Provider [phone] Encounter Details Date Type Department Care Team (Late Contact Info) Description 11/22/2018 Transcribe Orders [facility] [address] [place] [address] Kori Crisostomo MD [address] [place] [address] [email or web address] Neck mass (Primary Dx); Hoarseness Social History Tobacco Use Types Packs/Day Years [...] Info) Description 10/27/2024 Procedure Pass [facility] [address] [place] [address] 10/24/2025 9:15 AM EST Appointment [facility] [address] [place] [address] Florina Ledbetter DNP [address] [facility], [address] [place] [address] 11/13/2025 8:30 AM EST Office Visit [facility] [address] [facility] 3rd Floor, [address] [place] [address] Florina Ledbetter DNP [address] [facility], [address] [place] [address] [email or web address] documented as of this encounter Results * Creatinine/eGFR (11/22/2018 2:08 PM EST) CREATININE 0.90 0.5 - 1.5 mg/dL [facility] EGFR 89 >59 mL/min/1.7 3m2 [facility] Comment:If patient is black, multiply result by 1.159. Estimated glomerular filtration rate calculated using the CKD-EPI equation. Blood 11/22/2018 2:08 PM EST 11/22/2018 2:49 PM EST Kori Crisostomo MD LAB BLOOD BKR ORDERA BLES Final Result [address] [address] * BUN (11/22/2018 2:08 PM EST) BUN 13 6 - 19 mg/dL [facility] Blood 11/22/2018 2:08 PM EST 11/22/2018 2:49 PM EST Kori Crisostomo MD LAB BLOOD BKR ORDERA BLES Final Result [address] [address] documented in this encounter Visit Diagnoses Diagnosis Neck mass- Primary Swelling, mass, or lump in head and neck Hoarseness Dysphonia documented in this encounter Care Teams Camouflage Assembler Relationship Specialty Start Date End Date Alan Vu MD PCP - General 08/31/17 02/01/19 Mac Amos MD [address] [facility] [address] [place] [address] [email or web address] PCP - General Internal Medicine 02/02/1902/18 Unknown, Unknown, PCP - General 02/19/22 06/15/23 Kranthi Javier DO [email or web address] PCP - General Internal Medicine 06/16/23 documented as of this encounter Additional Source Comments The information contained in this document represents components of the legal health record. It is not the complete legal health record.[facility]
--- OUTSIDE RECORDS SUMMARY | 2025-09-20 11:26 | XMS_ITS | Encounter Summary ---
Author Organization [facility] Address [address] [facility] [address] [place] [address] Phone Care Team Providers Care Upper Lining Cementer Name Role Phone Alan Vu MD Primary Care Provider Mac Michael MD Primary Care Provider [phone] Unknown, Unknown Primary Care Provider Kranthi Walton DO Primary Care Provider [phone] Encounter Details Date Type Department Care Team (Late st Contact Info) Description 11/22/2018 Transcribe Orders [address] [address] Alan Vu MD Social History Tobacco Use Types Packs/Day Years [...] Info) Description 10/27/2024 Procedure Pass [facility] [address] [place] [address] 10/24/2025 9:15 AM EST Appointment [facility] [address] [place] [address] Florina Ledbetter, K[facility] [address] [facility], [address] [place] [address] 11/13/2025 8:30 AM EST Office Visit [facility] [address] [facility] 3rd Floor, [address] [place] [address] Florina Ledbetter, DANIAL [address] [facility], [address] [place] [address] [email or web address] documented as of this encounter Visit Diagnoses Not on filedocumented in this encounter Care Teams Upper Lining Cementer Relationship Specialty Start Date End Date Alan Vu MD PCP - General 08/31/17 02/01/19 DandreMac MD [address] [place] [address] [address] [place] [address] [email or web address] PCP - General Internal Medicine 02/02/1902/18 Unknown, Unknown, PCP - General 02/19/22 06/15/23 Kranthi Javier DO [email or web address] PCP - General Internal Medicine 06/16/23 documented as of this encounter Additional Source Comments The information contained in this document represents components of the legal health record. It is not the complete legal health record.[facility]
--- OUTSIDE RECORDS SUMMARY | 2025-09-20 11:26 | XMS_ITS | Encounter Summary ---
Author Organization [facility] Address [address] [place] [address] Phone Care Team Providers Care Commercial Retoucher Name Role Phone Unknown, Unknown Primary Care Provider Kranthi Walton DO Primary Care Provider [phone] Encounter Details Date Type Department Care Team (Late Contact Info) Description 04/28/2023 Procedure Pass Non-Invasive Cardiology [address] [place] [address] Social History Tobacco Use Types Packs/Day Years [...] Info) Description 10/27/2024 Procedure Pass [facility] [place] [address] [place] [address] 10/24/2025 9:15 AM EST Appointment [facility] [place] [address] [place] [address] Florina Ledbetter, DANIAL [address] [facility], [address] [place] [address] 11/13/2025 8:30 AM EST Office Visit [facility] [address] [place] [address] 3rd Floor, [address] [place] [address] Florina Ledbetter, DANIAL [address] [facility], [address] [place] [address] [email or web address] documented as of this encounter Visit Diagnoses Not on filedocumented in this encounter Care Teams Commercial Retoucher Relationship Specialty Start Date End Date Unknown, Unknown, PCP - General 02/19/22 06/15/23 Kranthi Javier DO PCP - General Internal Medicine 06/16/23 documented as of this encounter Additional Source Comments The information contained in this document represents components of the legal health record. It is not the complete legal health record.[facility]
--- OUTSIDE RECORDS SUMMARY | 2025-09-20 11:27 | XMS_ITS | Encounter Summary ---
Author Organization [facility] Address [address] [place] [address] Phone Care Team Providers Care Production Gear Cutter Name Role Phone Mac Amos MD Primary Care Provider [phone] Unknown, Unknown Primary Care Provider Kranthi Walton DO Primary Care Provider [phone] Reason for Referral * MRI/CAT Scan - Closed Specialty Diagnoses / Procedures Referred By Janiya pineda Referred To Contact Radiology Diagnoses Abdominal aortic aneurysm (AAA) without rupture Procedures CT Angio Abdomen/Pelvis CT Abdomen/Pelvis Mac Amos MD Phone: tel: fax: [email or web address] Referral ID Status Reason Start Date Expiration Date Visits Re quested Visits Authorized [id number] Closed 06/29/2019 08/27/2019 1 1 Encounter Details Date Type Department Care Team (Latest Contact Info) Description 06/28/2019 Transcribe Orders Virtual Department [address] [place] [address] Mac Amos MD [address] [facility] [address] [place] [address] [email or web address] Abdominal aortic aneurysm (AAA) without rupture (Primary Dx) Social History Tobacco Use Types [...] Info) Description 10/27/2024 Procedure Pass Echo Lab [address] [place] [address] 10/24/2025 9:15 AM EST Appointment Echo Lab [address] [place] [address] Florina Ledbetter DNP [address] [place] [address], [address] [place] [address] [email or web address] 11/13/2025 8:30 AM EST Office Visit [facility] [address] [place] [address] 3rd Floor, [address] [place] [address] Florina Ledbetter DNP [address] [place] [address], [address] [place] [address] documented as of this encounter Results * CT ANGIO ABDOMEN/PELVIS WITH AND WITHOUT CONTRAST (07/01/2019 2:10 PM EDT) Anatomical Region Laterality Modality Abdomen, Abdominal Vasculature C omputed Tomography 07/01/2019 4:29 PM EDT Impressions 07/01/2019 5:38 PM EDT Mild aneurysmal dilatation of the infrarenal abdominal aorta which measures 3.2 x 3.2 cm. There is moderate diffuse calcified and noncalcified plaque. Several focal areas of abdominal aortic plaque ulceration. TOTAL CTDIvol: 73.30 mGy POS [id number] Edited by: Kimberlee Schwartz on 07/01/2019 4:50 PM Narrative 07/01/2019 5:38 PM EDT EXAM: CT ANGIO ABDOMEN/PELVIS WITH CONTRAST HISTORY: Abdominal aortic aneurysm. COMPARISON: Report from prior ultrasound 06/16/2017. TECHNIQUE: CT angiography of the abdomen and pelvis. 100 mL of Omnipaque 300 contrast IV. Coronal and sagittal images reconstructed. 3-D images reconstructed on the same workstation. Radiation dose control: Exam performed with automated exposure control or iterative reconstruction to minimize radiation exposure. FINDINGS: The proximal abdominal aorta at the aortic hiatus measures 2.1 x 2.1 cm. At the level of the renal arteries the abdominal aorta measures 2.3 x 2.3 cm. There is aneurysmal dilatation of the infrarenal abdominal aorta which measures maximum AP diameter is 3.2 x 3.2 cm. The aneurysmal dilatation is 5-6 cm inferior to the origins of the renal arteries. There is a rind of noncalcified plaque/thrombus at the LEFT anterolateral wall at the level of the aneurysm. There are several focal plaque ulcerations, largest measuring approximately 1 cm, and the others measuring a few millimeters. There is a moderate degree of mixed calcified and noncalcified atherosclerotic abdominal aortic plaque. Just above the bifurcation the distal abdominal aorta measures 1.9 x 1.9 cm. The RIGHT common iliac artery origin measures 1.1 cm, and the LEFT common iliac artery origin measures 1.1 cm, both with moderate atherosclerotic calcification. There is normal enhancement of the superior mesenteric artery, inferior mesenteric artery and celiac axis. There is normal enhancement of the renal arteries. There are no lung base pleural effusions. The imaged portion of the heart is normal in size. The gallbladder, biliary tree, pancreas, spleen and adrenal glands are normal. There is a benign coarse calcification within the RIGHT lobe of the liver. The liver is otherwise normal in attenuation and size. There are multiple bilateral parapelvic renal cysts, measuring up to 2.5 cm. No hydronephrosis. There are scattered colonic diverticula. The appendix is normal. Mildly enlarged prostate gland which indents upon the adjacent urinary bladder. There is no abdominal or pelvic ascites. There is no adenopathy. No suspicious bone lesions or acute fractures. Moderate and advanced degenerative spondylitic changes throughout the lower thoracic and lumbar spine. Chronic L2 inferior endplate Schmorl's node present. Procedure Note Beryl Talbot MD - 07/01/2019 EXAM: CT ANGIO ABDOMEN/PELVIS WITH CONTRAST HISTORY: Abdominal aortic aneurysm. COMPARISON: Report from prior ultrasound 06/16/2017. TECHNIQUE: CT angiography of the abdomen and pelvis. 100 mL of Fixldnhao652 contrast IV. Coronal and sagittal images reconstructed. 3-D imagesreconstructed on the same workstation. Radiation dose control: Examperformed with automated exposure control or iterative reconstruction tominimize radiation exposure. FINDINGS: The proximal abdominal aorta at the aortic hiatus measures 2.1 x 2.1 cm.At the level of the renal arteries the abdominal aorta measures 2.3 x 2.3cm. There is aneurysmal dilatation of the infrarenal abdominal aorta whichmeasures maximum AP diameter is 3.2 x 3.2 cm. The aneurysmal dilatation is5-6 cm inferior to the origins of the renal arteries. There is a rind ofnoncalcified plaque/thrombus at the LEFT anterolateral wall at the levelof the aneurysm. There are several focal plaque ulcerations, largestmeasuring approximately 1 cm, and the others measuring a few millimeters.There is a moderate degree of mixed calcified and noncalcifiedatherosclerotic abdominal aortic plaque. Just above the bifurcation thedistal abdominal aorta measures 1.9 x 1.9 cm. The RIGHT common iliacartery origin measures 1.1 cm, and the LEFT common iliac artery originmeasures 1.1 cm, both with moderate atherosclerotic calcification. Thereis normal enhancement of the superior mesenteric artery, inferiormesenteric artery and celiac axis. There is normal enhancement of therenal arteries. There are no lung base pleural effusions. The imaged portion of the heartis normal in size. The gallbladder, biliary tree, pancreas, spleen and adrenal glands arenormal. There is a benign coarse calcification within the RIGHT lobe ofthe liver. The liver is otherwise normal in attenuation and size. Thereare multiple bilateral parapelvic renal cysts, measuring up to 2.5 cm. Nohydronephrosis. There are scattered colonic diverticula. The appendix is normal. Mildly enlarged prostate gland which indents upon the adjacent urinarybladder. There is no abdominal or pelvic ascites. There is no adenopathy. No suspicious bone lesions or acute fractures. Moderate and advanceddegenerative spondylitic changes throughout the lower thoracic and lumbarspine. Chronic L2 inferior endplate Schmorl's node present. IMPRESSION: Mild aneurysmal dilatation of the infrarenal abdominal aorta whichmeasures 3.2 x 3.2 cm. There is moderate diffuse calcified andnoncalcified plaque. Several focal areas of abdominal aortic plaqueulceration. TOTAL CTDIvol: 73.30 mGy POS [id number] Edited by: Kimberlee Schwartz on 07/01/2019 4:50 PM Mac Amos MD IMG CT ABD/PELVIS Final Result documented in this encounter Visit Diagnoses Diagnosis Abdominal aortic aneurysm (AAA) without rupture- Primary Abdominal aortic aneurysm (AAA) without rupture documented in this encounter Care Teams Production Gear Cutter Relationship Specialty Start Date End Date Dandre, Mac Bess MD [address] [place] [address] [address] [place] [address] [email or web address] PCP - General Internal Medicine 02/02/1902/18 Unknown, Grey, PCP - General 02/19/22 06/15/23 Kranthi Javier DO [email or web address] PCP - General Internal Medicine 06/16/23 documented as of this encounter Additional Source Comments The information contained in this document represents components of the legal health record. It is not the complete legal health record.[facility]
--- OUTSIDE RECORDS SUMMARY | 2025-09-20 11:27 | XMS_ITS | Encounter Summary ---
Author Organization [facility] Address [address] [place] [address] Phone Care Team Providers Care Underwriter Solicitation Director Name Role Phone Alan Vu MD Primary Care Provider Mac Michael MD Primary Care Provider [phone] Unknown, Unknown Primary Care Provider Kranthi Walton DO Primary Care Provider [phone] Encounter Details Date Type Department Care Team (Latest Contact Info) Description 12/29/2017 Transcribe Orders [address] [address] Alan Vu MD Diabetes mellitus of other type with complication, unspecified care home insulin use status (Primary Dx) Social History Tobacco Use Types Packs/Day Years Used Date Smoking Tobacco: Never Assessed Sex and Gender Information Value Date Recorded Sex Assigned at Not on file Legal Sex Male 10:00 PM EDT Gender Identity Not on file Sexual Orientation Not on file documented as of this encounter Plan of Treatment Upcoming Encounters Date Type Department Care Team (Late st Contact Info) Description 10/27/2024 Procedure Pass Echo Lab [address] [place] [address] 10/24/2025 9:15 AM EST Appointment Echo Lab [address] [place] [address] Florina Ledbetter, DANIAL [address] [facility], [address] [place] [address] 11/13/2025 8:30 AM EST Office Visit [facility] [address] [place] [address] [address]rd Floor, [address] [place] [address] Florina Ledbetter, DNP [address] [facility], [address] [place] [address] [email or web address] documented as of this encounter Results * TSH (12/29/2017 9:12 AM EST) TSH 1.93 0.27 - 4.20 uIU/mL [facility] Blood 12/29/2017 9:12 AM EST 12/29/2017 9:45 AM EST us Alan Vu MD LAB BLOOD BKR ORDERABLES Final Result Performing Organization Address [facility] Co de Phone Number [address] [address] * Microalbumin/creatinine ratio, random urine (12/29/2017 9:12 AM EST) URINE MICROALBUMIN 1.5 0 - 2.3 mg/dL [facility] URINE CREATININE 166 mg/dL [facility] MICROALB/CRE RATIO 9.0 0 - 20 mg/g Cre [facility] Urine (Urine) 12/29/2017 9:1 2 AM EST 12/29/2017 9:46 AM EST us Alan Vu MD LAB URINE ORDERABLES Final Resu lt [address] [address] * (ABNORMAL) Hemoglobin A1c (12/29/2017 9:12 AM EST) HEMOGLOBIN A1C 7.1(H) 4.3 - 5.8 % [facility] Blood 12/29/2017 9:12 AM EST 12/29/2017 9:45 AM EST us Alan Vu MD LAB BLOOD BKR ORDERABLES Final Result [address] [address] * LFTs (hepatic panel) (12/29/2017 9:12 AM EST) Pathologist [facility] ALKALINE PHOSPHATASE 82 39 - 117 U/L [facility] TOTAL BILIRUBIN 0.6 0 - 1.2 mg/dL [facility] DIRECT BILIRUBIN <0.2 0 - 0.3 mg/dL [facility] Bilirubin (Indirect) NOT CALCULATED 0 - 1.5 mg/dL [facility] AST 18 0 - 37 U/L [facility] ALT 21 0 - 40 U/L [facility] TOTAL PROTEIN 7.1 6.5 - 8.0 g/dL [facility] ALBUMIN 4.1 3.9 - 4.8 g/dL [facility] GLOBULIN 3.0 1 - 4.8 g/dL [facility] A/G Ratio 1.37 1.00 - 4.80 RATIO [facility] Blood 12/29/2017 9:12 AM EST 12/29/2017 9:45 AM EST Alan Vu MD LAB BLOOD BKR ORDERABLES Final Result [address] [address] * Lipid panel (12/29/2017 9:12 AM EST) Pathologist [facility] HDL 29 mg/dL [facility] Comment: Interpretation: Risk Level Males Decreased >45 mg/dL Average 40-45 mg/dL Increased <40 mg/dL CHOLESTEROL 107 0 - 240 mg/dL [facility] TRIGLYCERIDES 65 30 - 160 mg/dL [facility] LDL 65 50 - 129 mg/dL [facility] Comment: LDL levels in terms of risk for coronary heart disease: <100 mg/dL: Optimal 100-129 mg/dL: Near or above optimal 130-159 mg/dL: Borderline high 160-189 mg/dL: High >190 mg/dL: Very High CARDIAC RISK RATIO 3.7 3.4 - 5.0 C [facility] Blood 12/29/2017 9:12 AM EST 12/29/2017 9:45 AM EST us Alan Vu MD LAB BLOOD BKR ORDERABLES Final Result [facility] [address] [place] [address] documented in this encounter Visit Diagnoses Diagnosis Diabetes mellitus of other type with complication, 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 PCP - General Internal Medicine 06/16/23 documented as of this encounter Additional Source Comments The information contained in this document represents components of the legal health record. It is not the complete legal health record.[facility]
--- OUTSIDE RECORDS SUMMARY | 2025-09-20 11:27 | XMS_ITS | Data Portability ---
Author Organization [facility], Telehealth Patient Home Address [address] [place] [address] Assessment Encounter Date Assessment Date Assessment LastModified by Organization Details LastModified Time 11/11/2024 11/11/2024 [address] [place] [address] (DRY CLEANER HAND) MDM MODERATE MUST MEET 2 OUT OF 3 ELEMENTS: PROBLEMS, DATA OR RISK ELEMENT 1: PROBLEMS ADDRESSED 1 OR MORE CHRONIC ILLNESS WITH EXACERBATION OR 2 OR MORE STABLE CHRONIC ILLNESSES OR 1 UNDIAGNOSED NEW PROBLEM OR 1 ACUTE ILLNESS W/SYMPTOMS OR 1 ACUTE COMPLICATED INJURY ELEMENT 2: DATA MUST MEET 1 OF 3 CATEGORIES CATEGORY 1: REVIEW OF PRIOR EXTERNAL NOTES, REVIEW OF RESULTS, ORDERING OF EACH TEST, ASSESSMENT REQUIRING INDEPENDENT HISTORIAN OR CATEGORY 2: INDEPENDENT INTERPRETATION OF TESTS BY ANOTHER PHYSICIAN OR SPECIALIST OR CATEGORY 3: DISCUSSION OF MGT OR TEST INTERPRETATION W/EXTERNAL PHYSICIAN OR SPECIALIST ELEMENT 3: RISK RISK OF COMPLICATIONS AND/OR MORBIDITY OR MORTALITY OF PATIENT MANAGEMENT PROVIDER MUST THOROUGHLY DOCUMENT EACH ELEMENT THAT IS COVERED Not available 11/11/2024 10:29:22 09/20/2025 09/20/2025 Patient presente d to office [...] available Lab lipid panel, blood 2024 025 [facility], [address] [place] [address], [id number], 09/20/2025 11:02:35 hemoglobi n, gastroint estinal, stool 2024 025 [facility], [address] [place] [address], [id number], 09/20/2025 11:02:35 CBC w/ auto diff 2024 025 [facility], [address] [place] [address], [id number], 09/20/2025 11:02:35 CMP, serum or plasma 2024 025 [facility], [address] [place] [address], [id number], 09/20/2025 11:02:34 hemoglobi n A1c, QN, blood 2024 025 [facility], [address] [place] [address], [id number], 05/10/2025 12:11:47 lipid panel, serum 2024 025 [facility], [address] [place] [address], [id number], 05/10/2025 12:11:47 CMP, serum or plasma 2024 025 [facility], [address] [place] [address], [id number], 05/10/2025 12:11:47 CBC w/ auto diff 2024 025 [facility], [address] [place] [address], [id number], 05/10/2025 12:11:47 PSA, total + free, serum or plasma 2024 025 [facility], [address] [place] [address], [id number], 05/10/2025 12:12:38 vitamin D, 25-hydrox y, total, serum [address] [facility], [address] [place] [address], [id number], 07/27/2024 15:37:47 vitamin B12, serum [address] [facility], [address] [place] [address], [id number], 07/27/2024 15:37:47 HbA1c (hemoglob in A1c), blood 2023 024 [facility], [address] [place] [address], [id number], 09/16/2024 11:59:40 CMP, serum or plasma 2023 024 [facility], [address] [place] [address], [id number], 09/16/2024 13:23:03 lipid panel, serum 2023 024 [facility], [address] [place] [address], [id number], 09/16/2024 12:36:04 microalbu min, urine 2023 024 [facility], [address] [place] [address], [id number], 09/16/2024 12:15:27 Referral None recorded. Procedures None recorded. Surgeries None recorded. Imaging CT, angiogram , abdominal aorta, w/wo contrast - s/p AAA repair 2023 024 [facility] [address] [facility], [facility] [address], [place], [address], 11/22/2024 14:02:04 Medication Orders Farxiga 10 mg tablet 2024 025 [facility], [address] [place], [address], 05/10/2025 12:10:25 lisinopri l 5 mg tablet 2024 025 [facility], [address] [place], [address], 05/10/2025 12:10:26 atorvasta tin 80 mg tablet 2024 025 [facility], [address] [place] [address], [address], 05/10/2025 12:10:26 clopidogr el 75 mg tablet 2024 025 [facility], [address] [place], [address], 05/10/2025 12:10:26 Patient TargetsNo targets recorded. Patient Instructions Encounter Date Encounter Id Patient Instructions Last Modified By Organization Details Last Modified Time 07/27/2024 [id number] high blood pressure: care instructions Not available 07/27/2024 15:48:31 learning about high blood pressure Not available 07/27/2024 15:48:31 09/20/2025 [id number] advance care planning: care instructions Not available 09/20/2025 10:57:14 Discussed and explained advance directives such as standard forms to the . Face to face discussion lasted for a duration of ___ minutes. Not available 08/07/2025 12:09:44 Reason for Referral None Reported. Results Created Date Observation Date Name Description Value Unit Range Abnormal Flag Note LastModifiedBy Organization Detail LastModifiedTime Result Notes None recorded. Problems Name Problem SNOMED Code Status Onset Date Resolution Date Notes Provider Name and Address Organization Details Recorded Time [facility] hyperten aren 84005330 Active 2021 Not Available [facility] 2 19:44:44 Coronary arterios clerosis 80380261 Active 2021 3 prior stents 2018. 2006 Kranthi Henson, DO [address] [facility], [place], [address], [facility] 3 15:57:13 Degenera tion of lumbar interver tebral disc 10937320 Active 2021 Not Available [facility] 2 19:44:44 Osteoart hritis of knee 577550967 Active 2021 Not Available [facility] 2 19:44:44 Psoriasi s 3111649 Active 2021 Not Available [facility] 2 19:44:44 Benign prostati c hyperpla angel 608047272 Active 2021 Not Available [facility] 2 19:44:44 Seborrhe ic dermatit is 01659756 Active 2021 Not Available [facility] 2 19:44:44 Compress ion fracture of L2 56862753484 628658 Active 2021 Not Available [facility] 2 19:44:44 Abdomina l aortic aneurysm 914916476 Active 2021 s/p surgery from may 2024 Sophie faust [facility] 4 15:23:15 Hyperlip idemia 57515306 Active 2021 Not Available [facility] 2 19:44:44 Type 2 diabetes mellitus 77097992 Active 2021 Not Available [facility] 2 19:44:44 Low back pain 260090153 Active 2021 Not Available [facility] 2 19:44:44 Acute urinary tract infectio n 980626789 Active 2021 Not Available [facility] 2 19:44:44 Acute low back pain 467184546 Active 2021 Not Available [facility] 2 19:44:44 Obstruct jez sleep apnea syndrome 54685121 Active 2022 Kranthi JessieBailee Shaqtristian, DO [address] [place], [address], [facility] 3 15:23:18 Type 2 diabetes mellitus without complica tion 726126201 Active 2023 Kranthi Nasir Yaya, DO [address] [place], [address], [facility] 4 14:47:43 Vitamin D deficien cy 58847916 Active 2023 Kranthi Best Yaya, DO [address] [place], [address], [facility] 4 14:49:15 Gastroes ophageal reflux disease 448333180 Active 2023 GUALBERTO POPE [address] [place] [address], [address], [facility] 4 16:27:17 Hypercho lesterol emia 76344299 Active 2024 GUALBERTO POPE [address] [place] [address], [address], [facility] 5 12:14:27 Problem Notes None recorded. Medical Equipment None Reported. Allergies Allergen ID Allergen Name Allergen Category Reaction Reaction Severity Criticality Documentation Date Start Date Code Code System Note Provider Name and Address Organization Details Recorded Time 6082 amoxicill in medicatio n anaphylax is severe Not available 08/29/2022 723 RxNorm Not Available [facility] 2 19:44:43 Medications Name Sig Start Date [...] height Body mass index (BMI) Body weight Oxygen saturation Oxygen saturation in Arterial blood by Pulse oximetry Heart rate Systolic And Diastolic Provider Name and Address Organization Details Last Updated DateTime 5 182.88 cm 29.3 kg/m2 62345.3 9 g 98 % 98 % 55 /min 124/72 mm[Hg] Florina Cristina [facility] 5 11:49:48 Date Recorded Body height Body mass index (BMI) Body weight Heart rate Oxygen saturation Oxygen saturation in Arterial blood by Pulse oximetry Systolic And Diastolic Provider Name and Address Organization Details Last Updated DateTime 4 182.88 cm 27.3 kg/m2 87962.0 7 g 58 /min 98 % 98 % 120/68 mm[Hg] Sophie Mcmullen [facility] 4 14:42:09 Date Recorded Body height Body mass index (BMI) Body weight Heart rate Oxygen saturation Oxygen saturation in Arterial blood by Pulse oximetry Systolic And Diastolic Provider Name and Address Organization Details Last Updated DateTime 5 182.88 cm 29.6 kg/m2 18640.1 4 g 70 /min 97 % 97 % 112/64 mm[Hg] Kranthi Henson, DO [address] [place], [address], [facility] 5 10:18:40 Date Recorded Body height Body weight Body mass index (BMI) Heart rate Oxygen saturation Oxygen saturation in Arterial blood by Pulse oximetry Systolic And Diastolic Provider Name and Address Organization Details Last Updated DateTime 4 182.88 cm 84244.1 5 g 27.8 kg/m2 67 /min 98 % 98 % 124/74 mm[Hg] Merissa Cassidy [facility] 4 10:04:15 Social History Question Answer Notes LastModified by [employer] Details LastModified Time Tobacco Smoking Status Former Smoker Joan faust [facility] 08/29/2022 09:53:33 What Was The Date Of Your Most Recent Tobacco Screening? 09/20/2025 Information not available 09/20/2025 Sex: Unknown Functional Status Question Answer Note LastModified by [employer] Details LastModified Time Do you or have [...] mcg/0.3 mL dose 01/12/2021 completed Not Available [facility] 3 11:52:21 COVID-19, mRNA, LNP-S, PF, 30 mcg/0.3 mL dose 02/02/2021 completed Not Available [facility] 3 11:52:21 Past Encounters Encounter ID Performer Location Encounter Start Date Encounter Closed Date Diagnosis/Indication Diagnosis SNOMED-CT Code Diagnosis ICD10 Code Diagnosis IMO Codes Diagnosis Note [id number] Kranthi Henson [facility] [address] [facility] [address] 08/29/2022 10:11:48 08/29/2022 14:40:20 Type 2 diabetes mellitus 79155551 E11.9 will fu with his routine lab work Hypertensive disorder 38 335428 I10 [facility] Hyperlipidemia 19297334 E78.2 will monitor Benign pro static hyperplasia 566637256 N40.0 will monitor PSA Essential hypertension 61121756 I10 will renew for patient [id number] Kranthi Henson [facility] [address] [facility],[place] [address] 10/07/2022 12:00:26 10/07/2022 15:18:24 Acute urinary tract infection 578829099 N10 will start on cipro for 7 days BID Acute low back pain 2788 61398 M54.59 can continue the tramadol [id number] Kranthi Henson [facility] [address] [facility],[place] [address] 01/06/2023 13:22:38 01/06/2023 14:23:04 Hypertensive disorder 19204540 I10 has been compliant with the meds etc Type 2 jovanny betes mellitus 87713794 E11.9 a1c is needed hasn't had since the fall Kranthi Henson [facility] [address] [facility],[place] [address] 04/17/2023 15:02:23 04/17/2023 16:17:50 Active or passive immunization 112804928 Z23 Adult heal th examination 760352078 Z00.01 staying active not having any symptoms Screening for malignant neoplasm of colon 364837796 Z12.11 Abdominal aortic aneurysm screening 451823031 Z13.6 Type 2 jovanny betes mellitus 10903294 E11.9 a1c is 7.1 and doing well we will rechk in 3 months discussed we will have to change off metformin in the coming future Coronary arteriosclerosis 49372742 I25.10 [id number] Kranthi Henson [facility] [address] [facility],[place] [address] 08/12/2023 14:43:55 08/12/2023 16:01:34 Benign prostatic hyperplasia 040190921 N40.0 stable Essential hypertension 22321568 I10 doing ok Hyperlipidemia 26183534 E78.2 on meds Type 2 jovanny betes mellitus 23818231 E11.9 a1c is 7.0 and no issues and feeling well 7.1 and doing well we will rechk in 3 months discussed we will have to change off metformin in the coming future [id number] Kranthi Henson [facility] [address] [facility],[place] [address] 11/03/2023 08:32:54 11/03/2023 15:35:16 Essential hypertension 03243382 I10 doing okis going to try to lose weight with portion control Hyperlipidemia 18457513 E78.2 on meds Type 2 jovanny betes mellitus 07815142 E11.9 a1c is 6.9 and was 7.0 and no issues and feeling well 7.1 and doing well we will rechk in 3 months discussed we will have to change off metformin in the coming futurewe are going to try a portion control way of eating Coronary arteriosclerosis 63966435 I25.10 stable and no new issues denies pain or sob Obstructiv e sleep apnea syndrome 94148881 G47.33 noted he is not interweste d in the cpap long discuss re wgt lossrechk in 1 month to see how he is doing [id number] Kranthi Henson [facility] [address] [facility],[place] [address] 12/09/2023 13:58:20 12/09/2023 14:53:46 Type 2 diabetes mellitus without complication 492955235 E11.9 a1c is 6.9 Essential hypertension 71735377 I10 doing okis going to try to lose weight with portion control Hyperlipidemia 14460728 E78.2 on meds Coronary arteriosclerosis 32584026 I25.10 stable and no new issues denies pain or sob Vitamin D deficiency 347 25789 E55.9 [id number] Kranthi Henson [facility] [address] [facility] [address] 04/20/2024 14:16:38 04/20/2024 15:12:54 Hyperlipidemia 37559236 E78.2 on meds Type 2 jovanny betes mellitus 63736918 E11.9 a1c is 6.7 6.9 and was 7.0 and no issues and feeling well 7.1 and doing well we will rechk in 3 months discussed we will have to change off metformin in the coming futurewe are going to try a portion control way of eating Vitamin D deficiency 347 74981 E55.9 will restat vit d3 supp Low back pain 920361297 M54.50 going to get rid of very old mattress Depression screening 171 096902 Z13.31 negative Type 2 jovanny betes mellitus without complication 753018195 E11.9 a1c is 6.9 [id number] Kranthi Henson [facility] [address] [facility],[place] [address] 05/27/2024 15:34:02 05/27/2024 16:42:25 Depression screening 260585207 Z13.31 negative Gastroesop hageal reflux disease 315871972 K21.9 will set up with new script [id number] Kranthi Henson [facility] [address] [facility] [address] 07/27/2024 14:27:00 07/27/2024 15:59:55 Coronary arteriosclerosis 98124846 I25.10 stable and no new issues denies pain or sob Type 2 jovanny betes mellitus without complication 441511065 E11.9 a1c is 6.9 Essential hypertension 60583672 I10 doing okis going to try to lose weight with portion control Vitamin D deficiency 347 30774 E55.9 will restat vit d3 supp Abdominal aortic aneurysm 506055097 I71.40 stable now post op doing great amazing recovery [id number] Kranthi Henson [facility] [address] [place] [address] 09/28/2024 09:58:46 09/28/2024 10:32:29 Pre-surgery evaluation 067603778 Z01.818 The patient was seen in the office today for pre-op evaluation . All medical conditions on patient's problem list were addressed and are currently stable, no interventi on needed at this time. Based on history and physical performed, the patient is cleared for surgery. Type 2 jovanny betes mellitus 48551290 E11.9 will fu with his routine lab work [id number] Kranthi Henson [facility] [address] [address] 11/11/2024 08:52:26 11/11/2024 10:41:37 Essential hypertension 01673691 I10 doing okis going to try to lose weight with portion control Abdominal aortic aneurysm 218957166 I71.40 stable now post op doing great amazing recoveryne eds new ct of aaa s/p repair Coronary arteriosclerosis 03693206 I25.10 stable and no new issues denies pain or sobseen by cardiol Type 2 jovanny betes mellitus without complication 780470220 E11.9 a1c is 6.3 doing well and no changes [id number] Kranthi Henson [facility] [address] [facility],[place] [address] 05/10/2025 11:43:56 05/10/2025 16:46:55 Hypercholesterolemia 28796379 E78.2 updated lab work order given to pt Renewal of prescription 625285671 Z76.0 stable Type 2 jovanny betes mellitus 03750018 E11.9 will fu with his routine lab work Essential hypertension 05168631 I10 will renew for patient Abdominal aortic aneurysm 741400164 I71.40 being monitored by his cardio officesurg went well, but has a bubble where the mesh was placed, no changes but has to go for an US every 6 mos Low back pain 958263489 M54.50 stable Obstructiv e sleep apnea syndrome 91415892 G47.33 stable Prostate s pecific antigen measurement 98001902 Z12.5 433049 routine screening History of repair of aneurysm of abdominal aorta 792908929 Z98.890 Z86.79 [id number] f/u w/ cardio Depression screening 171 397783 Z13.31 102804 negative At low risk for fall 439 372382 Z91.81 [id number] low risk [id number] DO Jonnie Ochoa [facility] [address] [facility] [address] 09/20/2025 10:05:48 09/20/2025 11:00:27 Screening for cardiovascular system disease 968481405 Z13.6 if he is not getting a new cath for his heart when he sees cardio he will be scheduledc t heart and echo Screening for malignant neoplasm of colon 942457374 Z12.11 Depression screening 171 292240 Z13.31 negative Essential hypertension 24272705 I10 doing okis going to try to lose weight with portion control Hyperlipidemia 16666511 E78.2 on meds Type 2 jovanny betes mellitus without complication 684042836 E11.9 a1c is 6.3 doing well and no changes Preventive procedure 169 720951 Z00.00 67390693 staying active not having any symptoms Health Concerns Section Related Observation LastModified by Organization Detai ls LastModified Time None Recorded Concern Status LastModified by Organization Details LastModified Time None Recorded Advance Directives Directive None Recorded Payers Insurance Date Sequence Insurance Name Policy Number Policy Allred Covered Member ID Allred Member ID Guarantor Name 09/20/2025 2 [place] [employer] Gurwinder Tabor [id number] Gurwidner Tabor 09/20/2025 1 [place] (MEDICARE [place]ACEMENT PPO) [id number] Gurwinder Tabor [id number] Gurwinder Tabor Notes Date Note Type Note Provider Name and Address Organization Details Recorded Time 07/27/20 24 text/htm l ROS as noted in the HPI relates doing ok overall except he has been having trouble with vision has appt with [facility] tomorrow relates has done well since the surgery he actually came out of the surgery with no back pain Kranthi Henson DO [address] [place], [address], [facility] 07/27/2024 15:48:35 09/28/20 text/htm l Pre-OpReported by PatientHPIFor severity, patient reportsmoderate. For risk factors, patient reportsno cognitive impairment,no functional impairment,no malnutrition,no frailty,able to climb a flight of stairs (exercise capacity>4 mets),no obstructive sleep apnea,non-smoker,no alcohol misuse,no illicit drug use,no chronic cardiopulmonary condition, andnot obese(t2dm: stable). For anesthesia hx, patient reportsno hx of anesthesia complications,no allergy to anesthetic agents, andno family history of anesthesia complications. For functional ability, patient reportsable to walk up stairs,able to perform heavy work around the house,no difficulty walking up hills, andable to walk 4 mph. For post-op support, patient reportsadequate assistance at home. For surgery to be performed, (bilateral surgery with dr. cummings). For context/condition being addressed, (first surgery date is 10/10/24). For location, (bilateral).ROS as noted in the HPI GUALBERTO POPE [address] [place], [address], [facility] 09/28/2024 10:21:05 11/11/20 24 text/htm l Care Management - DiabetesReported by PatientHPIFor self [...] andno calluses on feet. Care Management - HypertensionReported by PatientHPIFor self care, patient reportsnot under emotional stress. For severity, patient reportssymptoms are improvinganddoes not interfere with daily activities. For associated symptoms, patient reportsno dizziness,no lightheadedness,no chest pain,no shortness of breath,no palpitations,no edema,no calf muscle cramps,no blurred vision,no confusion,no headaches, andno fatigue.ROS as noted in the HPI patient is evaluated via tele/video assessment per patient consentduring current pandemic feels wellno cp no sob denies any abdominal or back painseen recently by cardiol no new issueshad an echo and doing wellrecent cataract surg that also went wellwill be needing a new ct of AAA DM stable with recent a1c of 6.3 Kranthi Henson DO [address] [place], [address], [facility] 11/11/2024 10:40:14 05/10/20 text/htm l ROS as noted in the HPI f/u medication HTN: today in the office the patient BP is 124/72 L arm sitting the patient is doing well on the BP medication with no side effects and no adjustment of their medications needed today at the appointment well-controlled on medication denies chest pain, sob, ankle swelling, orthopnea, palpitations HLD: cardio is monitoring his AAA s/p surgery, is getting US every 6 mos to monitor a bubble around the surgical site, so far no changes T2DM: meds working well for patient, no side effects, needs updated lab work for routine monitoring to ensure effectiveness of his medicationsstates he fines great, no symptoms associated with hyperglycemia, denies weight loss, increased thirst, increased urination, neuropathy, visual changes low back pain: no issues, feels fine AQUILINO: stable, no changes, sleeping fine needs updated lab work GUALBERTO POPE [address] [facility], [place], [address], [facility] 05/10/2025 12:26:53 09/20/20 25 text/htm l Care Management - [...] the AAA repair Kranthi Henson, DO [address] [facility], [place], [address], [place] [facility] 09/20/2025 11:00:26
--- OUTSIDE RECORDS SUMMARY | 2025-09-20 11:27 | XMS_ITS | Clinical Summary ---
Author Organization [facility] Address [address] [place] [address] Phone Care Team Providers Care Carpet Weaver Name Role Phone Kranthi Javier Primary Care Provider [phone] Allergies Active Allergy Reactions Criticality Noted Date Comments Amoxicillin Anaphylaxis High 09/30/2023 Medications metoprolol succinate (TOPROL XL) 25 MG 24 hr tablet Take 1 tablet by mouth daily. Active co-enzyme Q-10 (CO Q-10) 50 mg capsule Take 1 capsule by mouth daily. with a meal Active lisinopril (PRINIVIL,ZESTRI L) 5 MG tablet Take 1 tablet by mouth daily. Active metFORMIN (GLUCOPHAGE) 500 MG tablet Take 500 mg by mouth daily. 05/17/2024 Active atorvastatin (LIPITOR) 80 MG tablet Take 1 tablet by mouth daily. Active glimepiride (AMARYL) 1 MG tablet Take 1 tablet by mouth daily with breakfast. or the first main meal of the day Active aspirin (ASPIR-81) 81 MG EC tablet Take 81 mg by mouth daily. Active cholecalciferol (VITAMIN D3) 2,000 unit capsule Take by mouth daily. Active dapagliflozin propanediol (FARXIGA) 10 mg tablet Take 10 mg by mouth daily. 05/17/2024 Active clopidogrel (PLAVIX) 75 mg tablet Take 75 mg by mouth daily. 05/27/2024 Active Active Problems Problem Noted Date Diagnosed Date Abdominal aortic aneurysm 04/27/2025 Assessment & Plan (04/27/2025 10:05 AM EDT): He is being followed with [facility] vascular surgery for this. Ischemic cardiomyopathy 04/27/2024 Assessment & Plan (04/27/2025 10:03 AM EDT): He has a known cardiomyopathy with an ejection fraction of 40 to 45%. He will have his echocardiogram repeated prior to his next visit in October. He is completely euvolemic on exam today and is asymptomatic. Assessment & Plan (10/27/2024 2:18 PM EST): He continues to have a cardiomyopathy with an ejection fraction 40 to 45%. This is stable from his previous echocardiogram a year ago. We will continue to monitor with echocardiograms on an annual basis. He is currently asymptomatic and euvolemic on exam today. 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 Will continue to optimize cardiac risk factors. He is on aspirin 81 mg daily which will remain on lifelong, atorvastatin 80 mg daily, clopidogrel 75 mg daily, Farxiga 10 mg daily, lisinopril 5 mg daily and metoprolol 25 mg daily. He is encouraged follow heart healthy diet: Low-sodium Madaj exercise. SBP goal less than 130/80. LDL goal less than 55 mg/dL. PCP has been following lipid panel however lipid panel has been ordered today. Assessment & Plan (10/27/2024 2:18 PM EST): Continues to be asymptomatic from a cardiovascular standpoint. Will continue to optimize his cardiac risk factors. He is on aspirin 81 mg daily which she will Madaj lifelong, atorvastatin 80 mg daily, clopidogrel 75 mg daily, Farxiga 10 mg daily, lisinopril 5 mg daily, metoprolol 25 mg daily. SBP goal less than 130/80. LDL goal less than 70 mg/dL. Coronary artery disease 01/21/2018 Hyperlipidemia 01/21/2018 Assessment & Plan (04/27/2025 10:04 AM EDT): Continue atorvastatin 80 mg daily. Assessment & Plan (10/27/2024 2:19 PM EST): Continue atorvastatin 80 mg daily. History of coronary artery stent placement 01/21 Hypertension 01/21/2018 Assessment & Plan (04/27/2025 10:02 AM EDT): Blood pressure is very well-controlled today 118/60. He will remain on lisinopril 20 mg daily metoprolol 25 mg daily. Assessment & Plan (10/27/2024 2:18 PM EST): Blood pressure is controlled today here in the office at 130/70. I did recheck him due to him letting me know that his blood pressure is often lower than that the 110 and 120 systolic. I did get 120/70. He is encouraged follow heart healthy diet including low-sodium and exercise. Type 2 diabetes mellitus without complications 0 01/21/2018 Family History Medical History Relation Comments Heart disease Maternal Grandmother Sleep disorder Neg Hx Relation Status Comments Maternal Grandmother Social History Tobacco Use Types Packs/Day Years Used Date Smoking Tobacco: Former Cigarettes 1.5 25 1 965 - 1989 Smokeless Tobacco: Former Tobacco Cessation:Counseling Given: Not Answered Alcohol Use Standard Drinks/Week Comments Yes 1 [...] on file Sexual Orientation Not on file Last Filed Vital Signs Vital Sign Reading Time Taken Comments Blood Pressure 118/60 04/27/2025 9:11 AM EDT Pulse 59 04/27/2025 9:11 AM EDT Temperature 36.6 C (97.9 F) 06/22/2024 2:39 PM EDT Respiratory Rate 18 06/22/2024 2:39 PM EDT Oxygen Saturation 98% 04/27/2025 9:11 AM EDT Inhaled Oxygen Concentration - - Weight 98 kg (216 lb) 04/27/2025 9:11 AM EDT Height 185.4 cm (6' 0.99 ) 04/27/2025 9:11 AM ED T Body Mass Index 28.5 04/27/2025 9:11 AM EDT Plan of Treatment Upcoming Encounters Date Type Department Care Team (Late st Contact Info) Description 10/27/2024 Procedure Pass Echo Lab [address] [place] [address] 10/24/2025 9:15 AM EST Appointment Echo Lab [address] [place] [address] Florina Ledbetter DNP [address] [place] [address], [address] [address] [email or web address] 11/13/2025 8:30 AM EST Office Visit [facility] [address] Floor, [address] [address] Florina Ledbetter DNP [address] [place] [address], [address] [address] Health Maintenance Due Date Last Done Comments Adult Td,Tdap Booster 1950 DEPRESSION SCREENING 1964 HEPATITIS C SCREENING 1970 PNEUMOCOCCAL VACCINES (50+ years) (1 of 2 - PCV) 1971 COLOGUARD 1997 COLONOSCOPY 1997 COLORECTAL CANCER SCREENING 1997 FIT TEST 1997 FOBT 1997 SIGMOIDOSCOPY 1997 VIRTUAL COLONOSCOPY 1997 RSV VACCINE (1 - Risk 50-74 years 1-dose series) 2002 ZOSTER VACCINES (1 of 2) 2002 DIABETIC EYE EXAM 12/29/2017 HEMOGLOBIN A1C 03/16/2025 09/16/2024, 06/0 02/2024, 11/03/2023, Additional history exists INFLUENZA VACCINE (#1) 2025 COVID-19 VACCINE (2 - 2024- season) 2025 02/02/2021 CREATININE LEVEL 09/16/2025 09/16/2024, 02/2024, 06/13/2024, Additional history exists POTASSIUM LEVEL 09/16/2025 09/16/2024, 08/0 02/2024, 06/13/2024, Additional history exists BLOOD PRESSURE 10/27/2025 04/27/2025 SMOKING STATUS SCREENING (Once After 26 Yrs) Completed 04/27/2025 HEPATITIS A VACCINES Aged Out No long er eligible based on patient's age to complete this topic HIB VACCINES Aged Out No longer eligi ble based on patient's age to complete this topic MENINGOCOCCAL VACCINES (ACWY) Aged Out No longer eligible based on patient's age to complete this topic MENINGOCOCCAL VACCINES (B) Aged Out N o longer eligible based on patient's age to complete this topic Medical Devices Not on file Procedures Procedure Name Priority Date/Time Associated Diagnosis Comments HEMOGLOBIN A1C Routine 09/16/2024 9:29 AM EDT Type 2 diabetes mellitus without complication, without long-term current use of insulin Type 2 diabetes mellitus without complication, unspecified whether group home insulin use Vitamin D deficiency COMPREHENSIVE METABOLIC PANEL (CMP) Routine 09/16/2024 9:29 AM EDT Type 2 diabetes mellitus without complication, without long-term current use of insulin Type 2 diabetes mellitus without complication, unspecified whether group home insulin use Vitamin D deficiency from Last 3 Months or Most Recently Relevant to Health Maintenance Results * (ABNORMAL) Comprehensive metabolic panel (09/16/2024 9:29 AM EDT) SODIUM 142 133 - 146 mmol/L [facility] POTASSIUM 4.6 3.3 - 5.1 mmol/L [facility] CHLORIDE 107 96 - 108 mmol/L [facility] CO2 26 21 - 35 mmol/L [facility] BUN 16 6 - 19 mg/dL [facility] CREATININE 1.00 0.5 - 1.5 mg/dL [facility] GLUCOSE 114(H) 70 - 99 mg/dL [facility] ALBUMIN 4.0 3.9 - 4.8 g/dL [facility] TOTAL PROTEIN 7.1 6.5 - 8.0 g/dL [facility] CALCIUM 9.5 8.4 - 10.3 mg/dL [facility] ALKALINE PHOSPHATASE 105 39 - 117 U/L [facility] TOTAL BILIRUBIN 0.4 0.0 - 1.2 mg/dL [facility] AST 24 0 - 37 U/L [facility] ALT 15 0 - 40 U/L [facility] GLOBULIN 3.1 1 - 4.8 g/dL [facility] EGFR 80 >59 mL/min/1.7 3m2 [facility] Comment:Estimated glomerular filtration rate calculated using the CKD-EPI refit equation. ANION GAP 14 10 - 20 mmol/L [facility] Blood 09/16/2024 9:29 AM EDT 09/16/2024 9:34 AM EDT us Kranthi Jessie Javier DO LAB BLOOD BKR ORDERABLES Final R esult [facility] [address] [place] [address] * (ABNORMAL) Hemoglobin A1c (09/16/2024 9:29 AM EDT) HEMOGLOBIN A1C 6.3(H) 4.3 - 5.8 % [facility] Blood 09/16/2024 9:29 AM EDT 09/16/2024 9:35 AM EDT us Kranthi Javier DO LAB BLOOD BKR ORDERABLES Final R esult [facility] [address] [place] [address] from Last 3 Months or Most Recently Relevant to Health Maintenance Insurance MEDICARE PPO BLUE REPLACEMENT MEDICARE PPO [place]UE [place] [address] [place] [address] MEDICARE PPO BLUE REPLACEMENT [facility] MEDICARE PPO BLUE [place] [address] [place] [address] MEDICARE PPO [place]UE [place] [place] [address] MEDICARE PPO BLUE REPLACEMENT [facility] MEDICARE PPO BLUE REPLACEMENT Care Teams Carpet Weaver Relationship Specialty Start Date End Date Kranthi Javier DO [email or web address] PCP - General Internal Medicine 06/16/23 Additional Source Comments The information contained in this document represents components of the legal health record. It is not the complete legal health record.[facility]
--- OUTSIDE RECORDS SUMMARY | 2025-09-20 11:27 | XMS_ITS | Encounter Summary ---
Author Organization [facility] Address [address] [place] [address] Phone Care Team Providers Care Continuing Education Dean Name Role Phone aMc Amos MD Primary Care Provider [phone] Unknown, Unknown Primary Care Provider Kranthi Walton DO Primary Care Provider [phone] Encounter Details Date Type Department Care Team (Latest Contact Info) Description 10/28/2019 Transcribe Orders [facility] [address] [place] [address] Dandre, Mac Bess MD [address] [facility] [address] [place] [address] [email or web address] Diabetes mellitus of other type without complication, unspecified whether scale mechanic insulin use (Primary Dx) Social History Tobacco [...] Info) Description 10/27/2024 Procedure Pass Echo Lab [address] [place] [address] 10/24/2025 9:15 AM EST Appointment Echo Lab [address] [place] [address] Florina Ledbetter DNP [address] [facility], [address] [place] [address] [email or web address] 11/13/2025 8:30 AM EST Office Visit [facility] [address] [facility] 3rd Floor, [address] [place] [address] Florina Ledbetter DNP [address] [facility], [address] [place] [address] [email or web address] documented as of this encounter Results * (ABNORMAL) Comprehensive metabolic panel (10/28/2019 8:24 AM EST) SODIUM 141 133 - 146 mmol/L [facility] POTASSIUM 5.0 3.3 - 5.1 mmol/L [facility] CHLORIDE 106 96 - 108 mmol/L [facility] CO2 27 21 - 35 mmol/L [facility] BUN 14 6 - 19 mg/dL [facility] CREATININE 0.80 0.5 - 1.5 mg/dL [facility] GLUCOSE 142(H) 70 - 99 mg/dL [facility] ALBUMIN 4.3 3.9 - 4.8 g/dL [facility] TOTAL PROTEIN 7.3 6.5 - 8.0 g/dL [facility] CALCIUM 9.7 8.4 - 10.3 mg/dL [facility] ALKALINE PHOSPHATASE 84 39 - 117 U/L [facility] TOTAL BILIRUBIN 0.5 0.0 - 1.2 mg/dL [facility] AST 22 0 - 37 U/L [facility] ALT 21 0 - 40 U/L [facility] GLOBULIN 3.0 1 - 4.8 g/dL [facility] EGFR 92 >59 mL/min/1.7 3m2 [facility] Comment:If patient is black, multiply result by 1.159. Estimated glomerular filtration rate calculated using the CKD-EPI equation. ANION GAP 13 10 - 20 mmol/L [facility] Blood 10/28/2019 8:24 AM EST 10/28/2019 8:26 AM EST Mac Amos MD LAB BLOOD BKR ORDERABLES Final Result Performing Organization Address City/[facility]/ZIP Co de Phone Number [address] [address] * (ABNORMAL) Hemoglobin A1c (10/28/2019 8:24 AM EST) HEMOGLOBIN A1C 7.4(H) 4.3 - 5.8 % [facility] Blood 10/28/2019 8:24 AM EST 10/28/2019 8:26 AM EST Mac Amos MD LAB BLOOD BKR ORDERABLES Final Result Performing Organization Address [facility] Co de Phone Number [address] [address] documented in this encounter Visit Diagnoses Diagnosis Diabetes mellitus of other type without complication, unspecified whether usp insulin use- Primary documented in this encounter Care Teams Continuing Education Dean Relationship Specialty Start Date End Date Mac Amos MD [address] [place] [address] & [address] [place] [address] [email or web address] PCP - General Internal Medicine 02/02/1902/18 Unknown, Unknown, PCP - General 02/19/22 06/15/23 Kranthi Javier DO [email or web address] PCP - General Internal Medicine 06/16/23 documented as of this encounter Additional Source Comments The information contained in this document represents components of the legal health record. It is not the complete legal health record.[facility]
--- OUTSIDE RECORDS SUMMARY | 2025-09-20 11:27 | XMS_ITS | Encounter Summary ---
Author Organization [facility] Address [address] [place] [address] Phone Care Team Providers Care Runner Worker Name Role Phone Mac Amos MD Primary Care Provider [phone] Unknown, Unknown Primary Care Provider Kranthi Walton DO Primary Care Provider [phone] Encounter Details Date Type Department Care Team (Late Contact Info) Description 04/04/2021 Ancillary Orders Virtual Department [address] [place] [address] DandreMac MD [address] [facility] [address] [place] [address] [email or web address] Pain of left heel; Left foot pain Social History Tobacco Use Types Packs/Day Years [...] Info) Description 10/27/2024 Procedure Pass Echo Lab [address] [place] [address] 10/24/2025 9:15 AM EST Appointment [facility] [address] [place] [address] Florina Ledbetter, DNP [address] [facility], [address] [place] [address] 11/13/2025 8:30 AM EST Office Visit [facility] [address] 3[address], [address] [place] [address] Anatoly Florina Trejo, DNP [address] [facility], [address] [place] [address] documented as of this encounter Results * XR FOOT 3 OR MORE VIEWS (LEFT) (04/08/2021 10:42 AM EDT) Anatomical Region Laterality Modality Foot Left Computed Radiogr aphy 04/08/2021 10:5 7 AM EDT Impressions 04/08/2021 10:59 AM EDT Degenerative changes without acute bony abnormality or significant calcaneal spurring apparent. POS - [id number] Narrative 04/08/2021 10:59 AM EDT COMPARISON: None FINDINGS: Frontal, lateral, oblique, and oblique calcaneus views reveal no acute fracture or subluxation. Moderately severe degenerative changes are present in the first metatarsal phalangeal compartment with joint space narrowing, articular surface sclerosis, and periarticular spurring with milder degenerative changes noted in the additional interphalangeal joints and the first tarsal-metatarsal joint. Minimal posterior calcaneal and ventral anterior talar spurring. No periarticular erosions or calcified soft tissue tophi apparent. Procedure Note Gurwinder Marte MD - 04/08/2021 COMPARISON: None FINDINGS: Frontal, lateral, oblique, and oblique calcaneus views reveal no acutefracture or subluxation. Moderately severe degenerative changes arepresent in the first metatarsal phalangeal compartment with joint spacenarrowing, articular surface sclerosis, and periarticular spurring withmilder degenerative changes noted in the additional interphalangeal jointsand the first tarsal-metatarsal joint. Minimal posterior calcaneal andventral anterior talar spurring. No periarticular erosions or calcifiedsoft tissue tophi apparent. IMPRESSION: Degenerative changes without acute bony abnormality or significantcalcaneal spurring apparent. POS - [id number] Mac Amos MD IMG XR LOWER EXTREMITY Final Re sult documented in this encounter Visit Diagnoses Diagnosis Pain of left heel Left foot pain Pain in soft tissues of limb Left foot pain Pain in soft tissues of limb documented in this encounter Care Teams Runner Worker Relationship Specialty Start Date End Date Dandre, Mac Bess MD [address] [place] [address] [address] [place] [address] [email or web address] PCP - General Internal Medicine 02/02/1902/18 Unknown, Grey, PCP - General 02/19/22 06/15/23 Kranthi Javier DO [email or web address] PCP - General Internal Medicine 06/16/23 documented as of this encounter Additional Source Comments The information contained in this document represents components of the legal health record. It is not the complete legal health record.[facility]
--- OUTSIDE RECORDS SUMMARY | 2025-09-20 11:27 | XMS_ITS | Encounter Summary ---
Author Organization [facility] Address [address] [facility] [address] [place] [address] Phone Care Team Providers Care Sheet Rock Hanger Name Role Phone Mac Amos MD Primary Care Provider [phone] Unknown, Unknown Primary Care Provider Kranthi Walton DO Primary Care Provider [phone] Encounter Details Date Type Department Care Team (Latest Contact Info) Description 04/12/2021 Transcribe Orders [facility] [address] [place] [address] DandreMac MD [address] [facility] [address] [place] [address] [email or web address] Diabetes mellitus of other type without complication, unspecified whether terminal makeup operator insulin use (Primary Dx) Social History Tobacco [...] Info) Description 10/27/2024 Procedure Pass Echo Lab [address] [place] [address] 10/24/2025 9:15 AM EST Appointment Echo Lab [address] [place] [address] Florina Ledbetter DNP [address] [facility], [address] [place] [address] 11/13/2025 8:30 AM EST Office Visit [facility] [address] [facility] 3rd Floor, [address] [place] [address] Florina Ledbetter DNP [address] [facility], [address] [place] [address] [email or web address] documented as of this encounter Results * (ABNORMAL) Hemoglobin A1c (04/12/2021 10:24 AM EDT) HEMOGLOBIN A1C 6.6(H) 4.3 - 5.8 % [facility] Blood 04/12/2021 10:2 4 AM EDT 04/12/2021 10:46 AM EDT Mac Amos MD LAB BLOOD BKR ORDERABLES Final Result [facility] [address] [place] [address] * (ABNORMAL) Basic metabolic panel (04/12/2021 10:24 AM EDT) SODIUM 139 133 - 146 mmol/L [facility] CHLORIDE 105 96 - 108 mmol/L [facility] POTASSIUM 4.1 3.3 - 5.1 mmol/L [facility] CO2 25 21 - 35 mmol/L [facility] BUN 14 6 - 19 mg/dL [facility] CREATININE 0.70 0.5 - 1.5 mg/dL [facility] GLUCOSE 182(H) 70 - 99 mg/dL [facility] CALCIUM 9.1 8.4 - 10.3 mg/dL [facility] EGFR 97 >59 mL/min/1.7 3m2 [facility] Comment:Estimated glomerular filtration rate calculated using the CKD-EPI equation. ANION GAP 13 10 - 20 mmol/L [facility] Blood 04/12/2021 10:2 4 AM EDT 04/12/2021 10:46 AM EDT Mac Amos MD LAB BLOOD BKR ORDERABLES Final Result [facility] [address] [place] [address] documented in this encounter Visit Diagnoses Diagnosis Diabetes mellitus of other type without complication, unspecified whether residential insulin use- Primary documented in this encounter Care Teams Sheet Rock Hanger Relationship Specialty Start Date End Date Mac Amos MD [address] [facility] [address] [place] [address] [email or web address] PCP - General Internal Medicine 02/02/1902/18 Unknown, Grey, PCP - General 02/19/22 06/15/23 Kranthi Javier DO [email or web address] PCP - General Internal Medicine 06/16/23 documented as of this encounter Additional Source Comments The information contained in this document represents components of the legal health record. It is not the complete legal health record.[facility]
--- OUTSIDE RECORDS SUMMARY | 2025-09-20 11:27 | XMS_ITS | Encounter Summary ---
Author Organization [facility] Address [address] [facility] [address] [place] [address] Phone Care Team Providers Care Mobile Device Developer Name Role Phone Alan Vu MD Primary Care Provider Mac Michael MD Primary Care Provider [phone] Unknown, Unknown Primary Care Provider Kranthi Walton DO Primary Care Provider [phone] Encounter Details Date Type Department Care Team (Late st Contact Info) Description 09/21/2018 Transcribe Orders [address] [address] Alan Vu MD Social History Tobacco Use [...] Info) Description 10/27/2024 Procedure Pass Echo Lab [address] [place] [address] 10/24/2025 9:15 AM EST Appointment [facility] Lab [address] [place] [address] Florina Ledbetter, [facility] [address] [facility], [address] [place] [address] 11/13/2025 8:30 AM EST Office Visit [facility] [address] [facility] 3rd Floor, [address] [place] [address] Florina Ledbetter, DANIAL [address] [facility], [address] [place] [address] [email or web address] documented as of this encounter Visit Diagnoses Not on filedocumented in this encounter Care Teams Mobile Device Developer Relationship Specialty Start Date End Date Alan Vu MD PCP - General 08/31/17 02/01/19 DandreMac MD [address] [place] [address] [address] [place] [address] [email or web address] PCP - General Internal Medicine 02/02/1902/18 Unknown, Unknown, PCP - General 02/19/22 06/15/23 Kranthi Javier DO [email or web address] PCP - General Internal Medicine 06/16/23 documented as of this encounter Additional Source Comments The information contained in this document represents components of the legal health record. It is not the complete legal health record.[facility]
[2025-09-20 13:38] LABS: MANUAL DIFF FLAG NO
[2025-09-20 13:53] LABS: Hematocrit 47.9 % (42.0-52.0); Hemoglobin 15.4 g/dl (14.0-18.0); Imm Gran Abs Auto 0.02 X10*3/uL (0.00-0.03); Imm Gran Pct Auto 0.3 % (0.0-0.4); Lymphocytes Absolute Auto 1.3 X10*3/uL (1.2-4.9); Mean Corpuscular HGB Conc 32.2 g/dl (31.0-36.0); Mean Corpuscular Hemoglobin 28.2 pg (27.0-33.0); Mean Corpuscular Volume 87.7 fL (80.0-98.0); NRBC Abs Auto 0.000 X10*3/uL (0.0-0.012); NRBC Pct Auto 0.0 /100WBC (0.0-0.2); Platelet Count 211 X10*3/uL (160-400); Red Blood Count 5.46 X10*6/uL (4.60-5.80); White Blood Count 7.8 X10*3/uL (4.8-10.8)
[2025-09-20 13:59] LABS: Hemoglobin A1C 190.7632 umol/L; Total Hemoglobin (HGBA1C) 3983.0750 umol/L
[2025-09-20 14:06] LABS: Alanine Aminotransferase 30 U/L (0-40); Albumin Level 4.6 g/dL (3.5-5.0); Alkaline Phosphatase 99 U/L (39-117); Anion Gap 13 (12-20); Aspartate Amino Transferase 32 U/L (5-37); Blood Urea Nitrogen 19 mg/dL (9-16); Calcium 9.6 mg/dL (8.4-10.2); Carbon Dioxide 25 mmol/L (22-29); Chloride 110 mmol/L (96-108); Cholesterol 119 mg/dL (<200); Estimated Glomerular Filt Rate > 60; HDL Cholesterol 33 mg/dL (>40); Potassium 4.6 mmol/L (3.3-5.1); Sodium 143 mmol/L (135-145); Total Protein 7.1 g/dL (6.5-8.0); Triglycerides 54 mg/dL (<150)
[2025-09-21 13:47] LABS: Free Prostate Spec Ag 0.2 ng/mL; Percent Free Prostate Spec Ag 50 % (calc) (>25)
== END 2025-09-20 09:57 | disposition home or self-care (01) ==
LOC: HO.MANLDS 09:56
PROVIDERS: Visit Provider Physician Assistant
DX: Z12.5 Encounter for screening for malignant neoplasm of prostate (principal); E11.9 Type 2 diabetes mellitus without complications; E78.2 Mixed hyperlipidemia
CPT/HCPCS: 36415; 80053; 80061; 83036; 84154; 85025